=== PATIENT | female | born 1945 | race Caucasian/White ===

== ENCOUNTER → 2017-09-20 | Outpatient (CLI) | payer MEDICARE ==
--- NOTE | 2017-09-23 10:38 | MM ---
Reason for exam: screening (asymptomatic). Last mammogram was performed 1 year ago. History: Patient is postmenopausal and is nulliparous. Taking estrogen for 21 years beginning at age 48. Physical Findings: A clinical breast exam by your physician is recommended on an annual basis and results should be correlated with mammographic findings. MG 3D Screening Mammo W/Cad Bilateral CC and MLO view(s) were taken. Prior study comparison: September 18, 2016, bilateral MG 3d diag mammo w/cad LU[facility]O. September 09, 2015, right breast MG 3d work up w/cad RT. The breast tissue is extremely dense which could obscure a lesion on mammography. Stable benign calcifications in the right breast. No significant changes when compared with prior studies. ASSESSMENT: Benign, BI-RAD 2 RECOMMENDATION: Routine screening mammogram of both breasts in 1 year.
== END | disposition home or self-care (01) ==
LOC: RADMAMWWP 08:29
PROVIDERS: ATTEND Family Medicine
DX: Z12.31 Encounter for screening mammogram for malignant neoplasm of breast (principal)
CPT/HCPCS: 77063; G0202

== ENCOUNTER → 2017-10-02 | Outpatient (CLI) | payer MEDICARE ==
--- NOTE | 2017-10-02 08:21 | BD ---
EXAMINATION TYPE: MG DEXA axial skeleton. DATE OF EXAM: 10/02/2017 COMPARISON: Prior DEXA bone scan report January 18, 2003 CLINICAL HISTORY: Postmenopausal female Height: 5 FT 5 IN Weight: 139 FRAX RISK QUESTIONS: Alcohol (3 or more units per day): NO Family History (Parent hip fracture): NO Glucocorticoids (More than 3mos): NO (Ex: prednisone, prednisolone, methylprednisolone, dexamethasone, and hydrocortisone). History of Fracture in Adulthood: NO Secondary Osteoporosis: 1. Type 1 Diabetes: NO 2. Hyperthyroidism: NO 3. Menopause before 45: NO 4. Malnutrition: NO 5. Chronic liver disease: NO Rheumatoid Arthritis: NO Current Tobacco Use: NO RISK FACTORS HISTORY OF: Surgery to Spine/Hip(right/left)/Wrist (right/left): [facility] HIP REPLACEMENT When: LT DONE DONE 18 YEARS AGO RT ONE DONE 15 YEARS AGO Family History of Osteoporosis: NO Active: YES Postmenopausal woman: TOTAL HYST AGE 48 Take estrogen and/or progesterone medications: How long: TOOK HRT FOR 20 YEARS FOLLOWING HYST, NO LONGER TAKES MEDICATIONS: Thyroid Medications: YES Which medication: LEVOTHYROXINE How Lon- 3O YEARS Additional Medications: BLOOD PRESSURE MEDS, THYROID MEDS, CHOLESTEROL MEDS, BLADDER MEDS, Additional History: EXAM MEASUREMENTS: Bone mineral densitometry was performed using the [employer] System. Bone mineral density as measured about the Lumbar spine is: ----- L1-L4(G/cm2): 1.034 T Score Values are as follows: ----- L2: -2.5 ----- L3: -0.3 ----- L4: -0.2 ----- L1-L4: -1.2 Bone mineral density has: INCREASED 0.4 % since study of: 2002 IMPRESSION: Osteopenia (T Score between -2.5 and -1 as noted by T score values in the upper lumbar spine at 2 con secutive levels. There is slightly increased risk of fracture and the patient may be considered for t reatment. Re-Screen 2-5 years. NOTE: T-SCORE=SD OF THE YOUNG ADULT MEAN.
== END | disposition home or self-care (01) ==
LOC: RADBDWWP 07:53
PROVIDERS: ATTEND Family Medicine
DX: M85.88 Other specified disorders of bone density and structure, other site (principal); Z78.0 Asymptomatic menopausal state
CPT/HCPCS: 77080

== ENCOUNTER → 2018-12-31 | Outpatient (CLI) | payer MEDICARE ==
--- NOTE | 2019-01-01 11:13 | MM ---
Reason for exam: screening (asymptomatic). Last mammogram was performed 1 year and 3 months ago. History: Patient is postmenopausal and is nulliparous. Taking estrogen for 21 years beginning at age 48. Physical Findings: A clinical breast exam by your physician is recommended on an annual basis and results should be correlated with mammographic findings. MG 3D Screening Mammo W/Cad Bilateral CC and MLO view(s) were taken. Prior study comparison: September 20, 2017, bilateral MG 3d screening mammo w/cad. September 18, 2016, bilateral MG 3d diag mammo w/cad [facility]. The breast tissue is heterogeneously dense. This may lower the sensitivity of mammography. No significant changes when compared with prior studies. ASSESSMENT: Benign, BI-RAD 2 RECOMMENDATION: Routine screening mammogram of both breasts in 1 year.
== END | disposition home or self-care (01) ==
LOC: RADMAMWWP 13:21
PROVIDERS: ATTEND Family Medicine
DX: Z12.31 Encounter for screening mammogram for malignant neoplasm of breast (principal)
CPT/HCPCS: 77063; 77067

== ENCOUNTER → 2019-03-02 | Outpatient (CLI) | payer MEDICARE ==
--- NOTE | 2019-03-02 11:56 | XR ---
EXAMINATION TYPE: XR chest 2V DATE OF EXAM: 03/02/2019 COMPARISON: 09/18/2011 TECHNIQUE: PA and lateral views submitted. HISTORY: Chest pain FINDINGS: The lungs are clear and there is no pneumothorax, pleural or pleural effusion. Atherosclerotic browning ge aorta. Biapical pleural thickening. No overt failure. Subsegmental changes at the left lung base. IMPRESSION: 1. Left basilar subsegmental atelectasis or early infiltrate correlate clinically.
== END | disposition home or self-care (01) ==
LOC: RADXRMAIN 10:30
PROVIDERS: ATTEND Family Medicine
DX: R07.9 Chest pain, unspecified (principal)
CPT/HCPCS: 71046

== ENCOUNTER → 2021-02-15 | Outpatient (CLI) | payer MEDICARE ==
--- NOTE | 2021-02-15 12:44 | BD ---
EXAMINATION TYPE: Axial Bone Density DATE OF EXAM: 02/15/2021 COMPARISON: NONE CLINICAL HISTORY: Height: 64 Weight: 114.6 FRAX RISK QUESTIONS: Alcohol (3 or more units per day): no Family History (Parent hip fracture): no Glucocorticoids (More than 3mos): no (Ex: prednisone, prednisolone, methylprednisolone, dexamethasone, and hydrocortisone). History of Fracture in Adulthood: no Secondary Osteoporosis: 1. Type 1 Diabetes: no 2. Hyperthyroidism: no 3. Menopause before 45: no 4. Malnutrition: no 5. Chronic liver disease: no Rheumatoid Arthritis: no Current Tobacco Use: no RISK FACTORS HISTORY OF: Surgery to Spine/Hip(right/left)/Wrist (right/left): BILATERAL HIPS REPLACEMENTS When: over 20 years ago Family History of Osteoporosis: no Active: yes Diet low in dairy products/other sources of calcium: yes Postmenopausal woman: age 48 MEDICATIONS: cholesterol meds, blood pressure meds, bladder meds Thyroid Medications: levothyroxine How Lon years Additional History: EXAM MEASUREMENTS: Bone mineral densitometry was performed using the [employer] System. Bone mineral density as measured about the Lumbar spine is: ----- L1-L4(G/cm2): 0.945 T Score Values are as follows: ----- L2: -2.9 ----- L3: -1.3 ----- L4: -0.8 ----- L1-L4: -2.0 Bone mineral density has: decreased -8.0 % since study of: 10.02.2017 Bone mineral density about the L Wrist (g/cm2): 0.543 T Score values are as follows: -----Dist. R+U: -2.2 -----Prox. R+U: -2.0 -----Radius total: -2.1 Bone mineral density : baseline IMPRESSION: Osteopenia (T Score between -2.5 and -1). There is slightly increased risk of fracture and the patient may be considered for treatment. Re-Screen 2-5 years. NOTE: T-SCORE=SD OF THE YOUNG ADULT MEAN.
--- NOTE | 2021-02-16 10:54 | MM ---
Reason for exam: screening (asymptomatic). Last mammogram was performed 2 years and 1 month ago. History: Patient is postmenopausal and is nulliparous. Taking estrogen for 21 years beginning at age 48. Physical Findings: A clinical breast exam by your physician is recommended on an annual basis and results should be correlated with mammographic findings. MG 3D Screening Mammo W/Cad Bilateral CC and MLO view(s) were taken. Prior study comparison: December 31, 2018, bilateral MG 3d screening mammo w/cad. September 20, 2017, bilateral MG 3d screening mammo w/cad. The breast tissue is extremely dense which could obscure a lesion on mammography. There are benign appearing round calcifications in the right breast. There is no discrete abnormality. Fatty tissue masses redemonstrated. ASSESSMENT: Benign, BI-RAD 2 RECOMMENDATION: Routine screening mammogram of both breasts in 1 year.
== END | disposition home or self-care (01) ==
LOC: RADMAMWWP 09:25
PROVIDERS: ATTEND Family Medicine
DX: Z12.31 Encounter for screening mammogram for malignant neoplasm of breast (principal); M85.80 Other specified disorders of bone density and structure, unspecified site
CPT/HCPCS: 77063; 77067; 77080

== ENCOUNTER → 2021-03-30 | Outpatient (CLI) | payer MEDICARE ==
--- NOTE | 2021-04-01 15:00 | ECHOF ---
Referral Reason:R01.1 cardiac murmur MEASUREMENTS -------- HEIGHT: 162.6 cm WEIGHT: 52.2 kg BP: 140/65 IVSd: 0.8 cm (0.6 - 1.1) LVIDd: 4.1 cm (3.9 - 5.3) LVPWd: 0.7 cm (0.6 - 1.1) EDV(Teich): 76 ml IVSs: 1.6 cm LVIDs: 2.3 cm LVPWs: 1.2 cm %IVS Thck: 93 % ESV(Teich): 17 ml EF(Teich): 77 % %FS: 46 % SV(Teich): 59 ml LVOT Diam: 2.1 cm LA Diam: 3.2 cm (2.7 - 3.8) RVIDd: 3.1 cm (< 3.3) LALs A4C: 4.2 cm LAAs A4C: 13.4 cm LAESV A-L A4C: 36 ml LAESV MOD A4C: 32 ml LALs A2C: 5.1 cm LAAs A2C: 15.9 cm LAESV A-L A2C: 42 ml LAESV MOD A2C: 39 ml LAESV(A-L): 43 ml LAESV Index (A-L): 27.78 ml/m Ao Diam: 2.8 cm (2.0 - 3.7) AV Cusp: 1.6 cm (1.5 - 2.6) EPSS: 0.2 cm MV E Nakul: 0.74 m/s MV DecT: 217 ms MV Dec Mcdonald: 3.4 m/s MV A Nakul: 0.87 m/s MV E/A Ratio: 0.85 MV PHT: 63 ms LVOT Vmax: 1.26 m/s LVOT maxP.40 mmHg AV Vmax: 2.14 m/s AV maxP.26 mmHg RAJI Vmax, Pt: 2.0 cm AV Vmax: 2.17 m/s AV Vmean: 1.47 m/s AV maxP.85 mmHg AV meanP.58 mmHg AV Env.Ti: 328 ms AV VTI: 48.0 cm RAJI Vmax, Pt: 2.0 cm TR Vmax: 2.53 m/s TR maxP.62 mmHg RAP: 5.00 mmHg RVSP: 30.62 mmHg MV EF SLOPE: 47.94 mm/s (70 - 150) MV EXCURSION: 12.69 mm (> 18.000) FINDINGS -------- Sinus rhythm. This was a technically good study. The left ventricular size is normal. Left ventricular wall thickness is normal. Overall left vent ricular systolic function is normal with, an EF between 60 - 65 %. The right ventricle is normal in size. Normal LA size by volume 22+/-6 ml/m2. The right atrium is normal in size. Interatrial and interventricular septum intact. There is mild aortic valve sclerosis. Trace to mild aortic regurgitation. There is mild aortic st enosis present. Peak/mean gradient across the Aortic Valve is 18.85mmHg / 9.58mmHg. The mitral valve leaflets are mildly thickened. Mild mitral annular calcification present. Mild m itral regurgitation is present. Mild tricuspid regurgitation present. Right ventricular systolic pressure is normal at < 35 mmHg. Trace/mild (physiologic) pulmonic regurgitation. The aortic root size is normal. Normal inferior vena cava with normal inspiratory collapse consistent with estimated right atrial pre ssure of 5 mmHg. There is no pericardial effusion. CONCLUSIONS -------- 1. The left ventricular size is normal. 2. Left ventricular wall thickness is normal. 3. Overall left ventricular systolic function is normal with, an EF between 60 - 65 %. 4. There is mild aortic valve sclerosis. 5. Trace to mild aortic regurgitation. 6. There is mild aortic stenosis present. 7. Peak/mean gradient across the Aortic Valve is 18.85mmHg / 9.58mmHg. 8. The mitral valve leaflets are mildly thickened. 9. Mild mitral annular calcification present. 10. Mild mitral regurgitation is present. 11. Mild tricuspid regurgitation present. 12. Trace/mild (physiologic) pulmonic regurgitation. 13. There is no pericardial effusion. SHEEP BONER: Melinda Guerrero RDCS
== END | disposition home or self-care (01) ==
LOC: RADECHMAIN 13:40
PROVIDERS: ATTEND Family Medicine
DX: I08.8 Other rheumatic multiple valve diseases (principal)
CPT/HCPCS: 93306

== ENCOUNTER → 2023-06-28 | Outpatient (CLI) | payer MEDICARE ==
--- NOTE | 2023-06-28 21:46 | BD ---
EXAMINATION TYPE: Axial Bone Density DATE OF EXAM: 06/28/2023 CLINICAL HISTORY: 77 years old Female. ICD-10 CODE: M85.9 DISORDER OF BONE DENSITY AND Height: 63" Weight: 126.1lbs FRAX RISK QUESTIONS: Alcohol (3 or more units per day): No Family History (Parent hip fracture): No Glucocorticoids (More than 3mos): No (Ex: prednisone, prednisolone, methylprednisolone, dexamethasone, and hydrocortisone). History of Fracture in Adulthood: No Secondary Osteoporosis: 1. Type 1 Diabetes: No 2. Hyperthyroidism: No 3. Menopause before 45: No 4. Malnutrition: No 5. Chronic liver disease: No Rheumatoid Arthritis: No Current Tobacco Use: No RISK FACTORS HISTORY OF: Hip Fracture (Right/Left): No Spine Fracture: No History of Wrist Fracture: No Surgery to Spine/Hip(right/left)/Wrist (right/left): Yes, bilateral hip replacements over 20 years ag o Family History of Osteoporosis: No Active: Yes Diet low in dairy products/other sources of calcium: No Postmenopausal woman: Yes Lost more than 2 inches in height since high school: No Frequent falls: No Poor Health: No Hyperparathyroidism: No Adrenal Insufficiency: No MEDICATIONS: Prednisone or other steroids: No Thyroid Medications: Yes Which medication: Levothyroxine How Long: Many years Osteoporosis Medications: No Additional Medications: blood pressure meds, cholesterol meds, levothyroxine, occasional reflux meds Additional History: None EXAM MEASUREMENTS: Bone mineral densitometry was performed using the [employer] System. Bone mineral density as measured about the Lumbar spine is: ----- L1-L4(G/cm2): 0.956 T Score Values are as follows: ----- L1: -2.7 ----- L2: -2.9 ----- L3: -1.2 ----- L4: -1.3 ----- L1-L4: -1.9 Z Score Values are as follows: ----- L1: -0.6 ----- L2: -0.8 ----- L3: 0.9 ----- L4: 0.8 ----- L1-L4: 0.2 Bone mineral density has: increased 1.2% since study of: 02/15/2021 Bone mineral density about the L Wrist (g/cm2): 0.543 T Score values are as follows: -----Dist. R+U: -1.9 -----Prox. R+U: -2.1 -----Radius total: -2.2 Z Score values are as follows: -----Dist. R+U: 0.9 -----Prox. R+U: 0.6 -----Radius total: 0.5 Bone mineral density has: decreased -1.7% since study of: 02/15/2021 FRAX%s: Not Applicable IMPRESSION: Osteoporosis (T Score less than -2.5). There is increased fracture risk and therapy is usually indicated based on age. Re-Screen 1-2 years. NOTE: T-SCORE=SD OF THE YOUNG ADULT MEAN.
--- NOTE | 2023-07-01 11:39 | MM ---
Reason for Exam: Screening (asymptomatic). Last mammogram was performed 2 year(s) and 4 month(s) ago. Patient History: Menarche at age 11. Patient has no children. Left ovary removed at age 48. Right ovary removed at age 48. Hysterectomy at age 48. Postmenopausal. Estrogen, starting at age 48 for 21 years. Risk Values: Lise 5 year model risk: 1.9%. NCI Lifetime model risk: 3.1%. Prior Study Comparison: 09/20/2017 Bilateral Screening Mammogram, [facility]. 12/31/2018 Bilateral Screening Mammogram, [facility]. 02/15/2021 Bilateral Screening Mammogram, [facility]. Tissue Density: The breast tissue is extremely dense which could obscure a lesion on mammography. Findings: Analyzed By CAD. There is no suspicious group of microcalcifications or new suspicious mass in either breast. Overall Assessment: Negative, BI-RAD 1 Management: Screening Mammogram of both breasts in 1 year. . Patient should continue monthly self-breast exams. A clinical breast exam by your physician is recommended on an annual basis. This exam should not preclude additional follow-up of suspicious palpable abnormalities. Note on Lise scores and lifetime risk: 1. A Lise score greater than 3% is considered moderate risk. If this is the case, consider specialist referral to assess eligibility for a risk reducing agent. 2. If overall lifetime risk for the development of breast cancer is 20% or higher, the patient may qualify for future screening with alternating mammogram and breast MRI. Electronically signed and approved by: Jose Cr M.D. Radiologis
== END | disposition home or self-care (01) ==
LOC: RADMAMWWP 15:22
PROVIDERS: ATTEND Family Medicine
DX: Z12.31 Encounter for screening mammogram for malignant neoplasm of breast (principal); M81.0 Age-related osteoporosis without current pathological fracture; M85.89 Other specified disorders of bone density and structure, multiple sites; Z78.0 Asymptomatic menopausal state; Z96.643 Presence of artificial hip joint, bilateral
CPT/HCPCS: 77063; 77067; 77080

== ENCOUNTER 2024-09-10 18:13 | Inpatient (IN) | payer MEDICARE ==
--- NOTE | 2024-09-10 18:27 | ED ---
General Adult HPI - General Chief complaint: Fall Stated complaint: Fall Time Seen by Provider: 09/10/24 18:15 Source: patient, EMS, RN notes reviewed, old records reviewed Mode of arrival: EMS Limitations: no limitations, physical limitation - History of Present Illness Initial comments: This is a 79-year-old female who presents to the emergency department stating that she was at the [facility] [address] she turned around and felt a snap in her right femur and now she complains of mid femur pain. Patient denies any hip pain patient denies any knee ankle or foot pain patient denies any other injury at this time. - Related Data Allergies Allergy/AdvReac Type Severity Reaction Status Date / Time narcotics AdvReac Nausea & Uncoded 09/10/24 18:38 Vomiting & Diarrhea Review of Systems ROS Statement: Those systems with pertinent positive or pertinent negative responses have been documented in the HPI. ROS Other: All systems not noted in ROS Statement are negative. Past Medical History Past Medical History: Hyperlipidemia, Hypertension, Thyroid Disorder Additional Past Medical History / Comment(s): hypothyroid, History of Any Multi-Drug Resistant Organisms: None Reported Past Surgical History: Adenoidectomy, Appendectomy, Hysterectomy, Joint Replacement, Tonsillectomy Additional Past Surgical History / Comment(s): bilateral knees, bilateral hips, Past Psychological History: No Psychological Hx Reported Smoking Status: Former smoker Past Alcohol Use History: Rare Past Drug Use History: None Reported General Exam - General Exam Comments Initial Comments: GENERAL Patient is well-developed and well-nourished. Patient is in mild distress. EYES Patient's pupils are equal and round. Extraocular motion is intact SKIN Unremarkable NEURO The patient is alert and oriented A&Ox3 PYSCH Patient has normal interpersonal interactions. MUSCULOSKELETAL Patient has a gross deformity of the mid femur and very tender and swollen in the mid femur region on the right Limitations: no limitations, physical limitation Course Vital Signs 09/10/24 09/10/24 09/10/24 18:14 18:48 19:10 Temperature 97.6 F Pulse Rate 67 75 71 Respiratory 18 18 18 Rate Blood Pressure 179/91 179/82 185/88 O2 Sat by Pulse 99 97 96 Oximetry Procedures - Orthopedic Fracture Reduction Fracture #1 Consent Obtained: written consent Side: right Fracture Reduction Location: femur Analgesia: procedural sedation Technique: traction/counter-traction Post Reduction X-rays Demonstrate: acceptable reduction Post-Reduction Neuro Exam: intact Post-Reduction Vascular Exam: intact Splint Applied: Yes Patient Tolerated Procedure: well - Procedural Sedation *Procedural Sedation Start Time: 19:13 *Procedural Sedation Stop Time: 19:40 *Risks,benefits, and alternative therapies discussed?: Yes *Patient indicates understanding of risk/benefit discussion?: Yes *Indications: fracture/dislocation reduction *Previous Adverse Reaction to Anesthesia/Sedation?: No Reason Test Not Complete:: Emergent Situation *ASA Class: II *Mallampati Airway Score: 2 Preparation: senior water resources engineer applied, pulse oximeter, capnometry used IV Propofol Dose (mgs): 75 Complications: none Interventions: oxygen applied Patient Tolerated Procedure: well Medical Decision Making - Medical Decision Making EKG is interpreted by myself. EKG shows sinus rhythm at 76 bpm NC 195 QRS is 135 QT interval 427 QTc is 457. Patient EKG shows no ST segment ovation or depression. Was pt. sent in by a medical professional or institution (, [facility], PHYSICS DEPARTMENT CHAIR, urgent care, hospital, or skilled nursing...) When possible be specific @ -No Did you speak to anyone other than the patient for history (EMS, parent, family, police, friend...)? What history was obtained from this source @ -No Did you review nursing and triage notes (agree or disagree)? Why? @ -I reviewed and agree with nursing and triage notes Were old charts reviewed (outside hosp., previous admission, EMS record, old EKG, old radiological studies, urgent care reports/EKG's, skilled nursing records)? Report findings @ -No old charts were reviewed Differential Diagnosis? @ -Hip dislocation, hip fracture, femur fracture, ligamentous damage of the knee this is not all-inclusive list EKG interpreted by me (3pts min.). @ -As above X-rays interpreted by me (1pt min.). @ -X-ray shows a distal spiral shaft fracture of the right femur. Postreduction showed reasonable alignment of the femur CT interpreted by me (1pt min.). @ -None done U/S interpreted by me (1pt. min.). @ -None done What testing was considered but not performed or refused? (CT, X-rays, U/S, labs)? Why? @ -None What meds were considered but not given or refused? Why? @ -None Did you discuss the management of the patient with other professionals (professionals i.e. , PA, PHYSICS DEPARTMENT CHAIR, lab, RT, psych nurse, social service agency director, e business consultant, teacher, sustainability officer, case filler)? Give summary @ -I spoke with and he spoke with Dr. perez and the patient will be admitted to Dr. perez consults [facility]. I spoke with [facility] hospitalist they agreed that they would be able to see the patient early in the morning and clear medically Was smoking cessation discussed for >3mins.? @ -No Was critical care preformed (if so, how long)? @ -No Were there social determinants of health that impacted care today? How? (Homelessness, low income, unemployed, alcoholism, drug addiction, transportation, low edu. Level, literacy, decrease access to med. care, care home, rehab)? @ -No Was there de-escalation of care discussed even if they declined (Discuss DNR or withdrawal of care, Hospice)? DNR status @ -No What co-morbidities impacted this encounter? (DM, HTN, Smoking, COPD, CAD, Cancer, CVA, ARF, Chemo, Hep., AIDS, mental health diagnosis, sleep apnea, morbid obesity)? @ -None Was patient admitted / discharged? Hospital course, mention meds given and route, prescriptions, significant lab abnormalities, going to OR and other pertinent info. @ -Patient had a femur fracture and I reduced under conscious sedation using propofol. Alignment was satisfactory. I will be admitting to Dr. Hernandez with a medicine consult Undiagnosed new problem with uncertain prognosis? @ -No Drug Therapy requiring intensive monitoring for toxicity (Heparin, Nitro, Insulin, Cardizem)? @ -No Were any procedures done? @ -No Diagnosis/symptom? @ -Femur fracture Acute, or Chronic, or Acute on Chronic? @ -Acute Uncomplicated (without systemic symptoms) or Complicated (systemic symptoms)? @ -Complicated Side effects of treatment? @ -No Exacerbation, Progression, or Severe Exacerbation? @ -No Poses a threat to life or bodily function? How? (Chest pain, [place], [place], pneumonia, PE, COPD, DKA, ARF, appy, cholecystitis, CVA, Diverticulitis, Homicidal, Suicidal, threat to staff... and all critical care pts) @ -No - Lab Data Result diagrams: 09/10/24 18:49 09/10/24 18:49 Lab Results 09/10/24 09/10/24 Range/Units 18:49 18:49 WBC 7.3 (3.8-10.6) k/uL RBC 4.13 (3.80-5.40) m/uL Hgb 12.4 (11.4-16.0) gm/dL Hct 37.1 (34.0-46.0) % MCV 89.9 (80.0-100.0) fL MCH 30.0 (25.0-35.0) pg MCHC 33.4 (31.0-37.0) g/dL RDW 14.6 (11.5-15.5) % Plt Count 336 (150-450) k/uL MPV 7.2 Neutrophils % 62 % Lymphocytes % 26 % Monocytes % 7 % Eosinophils % 1 % Basophils % 1 % Neutrophils # 4.6 (1.3-7.7) k/uL Lymphocytes # 1.9 (1.0-4.8) k/uL Monocytes # 0.5 (0-1.0) k/uL Eosinophils # 0.1 (0-0.7) k/uL Basophils # 0.0 (0-0.2) k/uL Sodium 135 L (137-145) mmol/L Potassium 4.0 (3.5-5.1) mmol/L Chloride 103 (98-107) mmol/L Carbon Dioxide 22 (22-30) mmol/L Anion Gap 10 mmol/L BUN 34 H (7-17) mg/dL Creatinine 1.02 (0.52-1.04) mg/dL Est GFR (CKD-EPI)AfAm 60 (>60 ml/min/1.73 sqM) Est GFR (CKD-EPI)NonAf 52 (>60 ml/min/1.73 sqM) Glucose 113 H (74-99) mg/dL Calcium 9.5 (8.4-10.2) mg/dL Total Bilirubin 0.4 (0.2-1.3) mg/dL AST 28 (14-36) U/L ALT 13 (4-34) U/L Alkaline Phosphatase 65 (38-126) U/L Total Protein 7.1 (6.3-8.2) g/dL Albumin 4.4 (3.5-5.0) g/dL Disposition Clinical Impression: Fracture, femur, distal Disposition: ADMITTED IP TO THIS HOSP Referrals: Renetta Torres MD [Primary Care Provider] - 1-2 days Time of Disposition: 19:41
[2024-09-10] MEDS: ONDANSETRON 4 MG/2 ML VIAL IVP STA (18:40)
[2024-09-10] MEDS: HYDROmorphone 0.5 MG/0.5 ML SYRINGE IVP STA (18:41)
--- NOTE | 2024-09-10 18:46 | XR ---
EXAMINATION TYPE: XR Femur RT 1 View DATE OF EXAM: 09/10/2024 6:35 PM COMPARISON: None CLINICAL INDICATION: Female, 79 years old with history of Fall, leg pain; [facility] TECHNIQUE: XR Femur RT 1 View examined in Frontal and lateral projections. FINDINGS/IMPRESSION: 1. Acute distal femur diaphysis fracture which demonstrates fragments closely approximating total kn ee arthroplasty hardware in the femur suggestive periprosthetic fracture. Anterior angulation with sh ortening is also present. 2. Right hip arthroplasty appears intact. No evidence for acute process. 3. Severe atherosclerosis of the arterial vasculature. [facility], , 09/10/2024 6:44 PM
[2024-09-10 18:55] LABS: Basophils % (A) 1 %; Eosinophils # (A) 0.1 k/uL (0-0.7); Eosinophils % (A) 1 %; HCT 37.1 % (34.0-46.0); HGB 12.4 gm/dL (11.4-16.0); Lymphocytes # (A) 1.9 k/uL (1.0-4.8); Lymphocytes % (A) 26 %; MCHC 33.4 g/dL (31.0-37.0); MCV 89.9 fL (80.0-100.0); Mean Platelet Volume 7.2; Monocytes # (A) 0.5 k/uL (0-1.0); Monocytes % (A) 7 %; Neutrophils # (A) 4.6 k/uL (1.3-7.7); Neutrophils % (A) 62 %; Platelet Count 336 k/uL (150-450); RBC 4.13 m/uL (3.80-5.40); RDW 14.6 % (11.5-15.5); WBC 7.3 k/uL (3.8-10.6)
[2024-09-10 19:10] LABS: ALT 13 U/L (4-34); AST 28 U/L (14-36); African American GFR (CKD) 60 (>60 ml/min/1.73 sqM); Albumin 4.4 g/dL (3.5-5.0); Alkaline Phosphatase 65 U/L (38-126); Anion Gap 10 mmol/L; Blood Urea Nitrogen 34 mg/dL (7-17); Calcium 9.5 mg/dL (8.4-10.2); Carbon Dioxide 22 mmol/L (22-30); Chloride 103 mmol/L (98-107); Glucose 113 mg/dL (74-99); Non-African American GFR(CKD) 52 (>60 ml/min/1.73 sqM); Sodium 135 mmol/L (137-145); Total Bilirubin 0.4 mg/dL (0.2-1.3); Total Protein 7.1 g/dL (6.3-8.2)
[2024-09-10] MEDS: PROPOFOL 10 MG/ML 20 ML VIAL IV ONE (19:27)
--- NOTE | 2024-09-10 19:42 | XR ---
EXAMINATION TYPE: XR femur RT DATE OF EXAM: 09/10/2024 7:36 PM COMPARISON: Same day CLINICAL INDICATION: Female, 79 years old with history of Post reduction femur fracture. TECHNIQUE: XR femur RT examined in Frontal and lateral projections. FINDINGS/IMPRESSION: Acute fracture of the distal femur diaphysis remains. External brace in place. There remains 19 mm di splacement with shortening. [facility], , 09/10/2024 7:40 PM
[2024-09-10 19:59] LABS: Partial Thromboplastin Time 20.2 sec (22.0-30.0)
[2024-09-10] MEDS: SODIUM CHLORIDE 0.9% 1,000 ML IV ONE (21:12)
[2024-09-10] MEDS ORDERED: HYDROcodone/APAP 5-325MG 1 EACH TAB PO PRN (21:34)
[2024-09-10] MEDS ORDERED: HYDROmorphone 0.5 MG/0.5 ML SYRINGE IVP PRN (21:35)
[2024-09-10] MEDS: ONDANSETRON 4 MG/2 ML VIAL IVP PRN (21:46)
[2024-09-10] MEDS: ACETAMINOPHEN TAB 325 MG TAB PO PRN (22:28)
[2024-09-10] MEDS: MELATONIN 3 MG TABLET PO PRN (22:28)
--- NOTE | 2024-09-11 10:21 | XR ---
EXAMINATION TYPE: XR chest 1V portable DATE OF EXAM: 09/11/2024 COMPARISON: NONE CLINICAL INDICATION: Female, 79 years old with history of shortness of breath; , TECHNIQUE: XR chest 1V portable views of the chest. FINDINGS: Left lower lobe infiltrate tiny effusion. No overt failure. Heart size normal. Atherosclerotic change aorta. Osseous structures intact. IMPRESSION: 1. Left lower lobe infiltrate and small pleural effusion. [facility], , 09/11/2024 10:19 AM
[2024-09-11] MEDS: IV FLUID CONTINUATION 1,000 ML IV ONE ×2 (12:08→17:32)
[2024-09-11] MEDS: ONDANSETRON 4 MG/2 ML VIAL IVP ONE ×2 (12:13→17:30)
[2024-09-11] MEDS: DEXAMETHASONE SOD PHOSPHATE 4 MG/ML 1 ML VIAL IV ONE (12:13)
[2024-09-11] MEDS ORDERED: TRANEXAMIC 1,000 MG/100ML-NACL 1,000 MG in SALINE 1 100ML.BAG IVPB PRN (13:08)
--- NOTE | 2024-09-11 13:37 | P.HPOR ---
History of Present Illness H&P Date: 09/11/24 Chief Complaint: right thigh pain status post fall Patient is a pleasant 79-year-old female who presented to the emergency department for right thigh pain status post ground level fall on 09/10/2024. Patient [place] and as she turned around she felt a snap in her right femur and fell to the ground. She immediately had pain. She was not able to ambulate afterward. She was brought to the emergency department where x-rays were taken. X-rays of the right femur dated 09/10/2024 images were reviewed and show an acute distal femur diaphysis fracture which demonstrates fragments closely approximating total knee arthroplasty hardware in the femur. Anterior angulation with shortening, and approximately 19 mm of displacement. Right total hip arthroplasty appears intact. Severe atherosclerosis of the arterial vasculature. Previously the patient was able to ambulate on her own without a cane or walker. Patient states that she currently lives alone in her home. Patient states she had bilateral total knee replacements done by Dr. Riley approximately 4 years ago, and has complained of bilateral weakness in the knees since. Past Medical History Past Medical History: Hyperlipidemia, Hypertension, Thyroid Disorder Additional Past Medical History / Comment(s): hypothyroid, History of Any Multi-Drug Resistant Organisms: None Reported Past Surgical History: Adenoidectomy, Appendectomy, Hysterectomy, Joint Replacement, Tonsillectomy Additional Past Surgical History / Comment(s): bilateral knees, bilateral hips, Past Psychological History: No Psychological Hx Reported Smoking Status: Former smoker Past Alcohol Use History: Rare Past Drug Use History: None Reported Medications and Allergies Home Medications Medication Instructions Recorded Confirmed Type Atorvastatin [Lipitor] 10 mg PO DAILY 09/10/24 09/10/24 History Levothyroxine Sodium [Synthroid] 75 mcg PO DAILY 09/10/24 09/10/24 History Losartan Potassium [Cozaar] 100 mg PO DAILY 09/10/24 09/10/24 History hydroCHLOROthiazide [Hydrodiuril] 25 mg PO DAILY 09/10/24 09/10/24 History Allergies Allergy/AdvReac Type Severity Reaction Status Date / Time narcotics AdvReac Nausea & Uncoded 09/11/24 11:49 Vomiting & Diarrhea Physical Examination Patient was evaluated at bedside. Patient was sitting up in bed in no acute distress. Patient was awake, alert and able to answer questions. A focused exam of the right lower extremity was conducted. Upon inspection there is a obvious deformity to the mid right thigh. There is generalized swelling. The skin appears intact. Patient's femoral nerve function is grossly intact. The patient is able to plantarflex and dorsiflex the right ankles and toes. Patient's foot appears well-perfused with capillary refill under 2 seconds. Range of motion of the hip and knee were not tested due to the acute femur fracture. Patient denies pain in her right ankle or foot at time of exam today. Results - Labs Labs: Abnormal Lab Results - Last 24 Hours (Table) 09/10/24 09/10/24 Range/Units 18:49 18:49 APTT 20.2 L (22.0-30.0) sec Sodium 135 L (137-145) mmol/L BUN 34 H (7-17) mg/dL Glucose 113 H (74-99) mg/dL H & H 09/10/24 Range/Units 18:49 Hgb 12.4 (11.4-16.0) gm/dL Hct 37.1 (34.0-46.0) % Coagulation 09/10/24 Range/Units 18:49 INR 1.0 (<1.2) Result Diagrams: 09/10/24 18:49 09/10/24 18:49 - Diagnostic results Knee x-ray: report reviewed, image reviewed Assessment and Plan Assessment: Acute right inter prosthetic femur fracture Right thigh pain. Status post ground-level fall. Prior right total hip arthroplasty Prior right total knee arthroplasty Plan: NPO. Nonweightbearing. X-ray results and clinical exam findings were discussed with the patient at length and all questions were answered. Plan: Open reduction internal fixation right inter prosthetic femur fracture this afternoon by Dr. Banda. Janet was used for this dictation, please excuse any spelling errors.
[2024-09-11] MEDS ORDERED: PROPOFOL 10 MG/ML 20 ML VIAL IV ONE (13:46)
[2024-09-11] MEDS ORDERED: fentaNYL (PF) 50 MCG/ML 2 ML AMP ONE (13:46)
[2024-09-11] MEDS ORDERED: diphenhydrAMINE 50 MG/ML 1 ML VIAL ONE (13:46)
[2024-09-11] MEDS ORDERED: SUCCINYLCHOLINE CHLORIDE 200 MG/10 ML VIAL IV ONE (13:46)
[2024-09-11] MEDS ORDERED: KETAMINE HCL IN 0.9 % NACL 50 MG/5 ML SYRINGE ONE (13:46)
[2024-09-11] MEDS ORDERED: LIDOCAINE 1% INJ 10MG/ML (20 ML MDV) ONE (13:46)
[2024-09-11] MEDS ORDERED: KETOROLAC 15 MG/ML 1 ML VIAL ONE (13:46)
[2024-09-11] MEDS ORDERED: ACETAMINOPHEN IV (For NPO) 1,000 MG/100 ML VIAL ONE (13:46)
[2024-09-11] MEDS ORDERED: TRANEXAMIC 1,000 MG/100ML-NACL PREMIX BAG ONE (13:46)
[2024-09-11] MEDS ORDERED: ROCURONIUM 10 MG/ML (5 ML VIAL) IV ONE (13:46)
[2024-09-11] MEDS ORDERED: MIDAZOLAM 2 MG/2 ML VIAL ONE (13:46)
[2024-09-11] MEDS: SODIUM CHLORIDE 0.9% 100 ML with ceFAZolin 2,000 MG IV ONE (13:50)
--- NOTE | 2024-09-11 14:43 | P.CONS ---
History of Present Illness - Reason for Consult Consult date: 09/11/24 Surgical clearance right femur fracture, postop management - History of Present Illness This is a pleasant 79-year-old female who presented to the emergency department via EMS with a fall although prior to the fall patient reports she took an awkward step and heard a crack of the left leg and then immediately fell with inability to stand up and experiencing immense pain. Patient was brought in for further evaluation and noted to have an acute distal femur diaphysis fracture which demonstrates fragments closely approximating the total knee arthroplasty hardware suggestive of a periprosthetic fracture with anterior angulation and shortening of the left lower extremity. Patient reports she follows with Dr. Torres in the outpatient setting with a past medical history of hyperlipidemia, hypertension, hypothyroid, previous bilateral knee replacements and bilateral hips. Patient lives alone and completely independent without a walker or cane prior to this event. Patient was admitted under orthopedics with medical on for surgical clearance. Given patient's age and comorbidities, patient considered low risk for surgical intervention. EKG was reviewed which shows sinus rhythm, chest x-ray negative for acute process and patient was also given a liter bolus in the ER. Recommend discontinuing fluids once patient is able to tolerate diet. Patient reports she has a significant history of intolerance to ane sthesia and pain medications with severe nausea. Will continue with Zofran and add Reglan as needed as well. Patient is currently n.p.o. and scheduled to undergo surgical intervention today. REVIEW OF SYSTEMS: CONSTITUTIONAL: No fever, no malaise, no fatigue. HEENT: No recent visual problems or hearing problems. Denied any sore throat. CARDIOVASCULAR: No chest pain, orthopnea, PND, no palpitations, no syncope. PULMONARY: No shortness of breath, no cough, no hemoptysis. GASTROINTESTINAL: No diarrhea, no nausea, no vomiting, no abdominal pain. NEUROLOGICAL: No headaches, no weakness, no numbness. HEMATOLOGICAL: Denies any bleeding or petechiae. GENITOURINARY: Denies any burning micturition, frequency, or urgency. MUSCULOSKELETAL/RHEUMATOLOGICAL: Reports of pain in the left lower extremity although okay with not moving ENDOCRINE: Denies any polyuria or polydipsia. The rest of the 14-point review of systems is negative. PHYSICAL EXAMINATION: GENERAL: The patient is alert and oriented x3, not in any acute distress. Well developed, elderly appearing HEENT: Pupils are round and equally reacting to light. EOMI. No scleral icterus. No conjunctival pallor. Normocephalic, atraumatic. No pharyngeal erythema. No thyromegaly. CARDIOVASCULAR: S1 and S2 present. No murmurs, rubs, or gallops. PULMONARY: Chest is clear to auscultation, no wheezing or crackles. ABDOMEN: Soft, nontender, nondistended, normoactive bowel sounds. No palpable organomegaly. MUSCULOSKELETAL: No joint swelling or deformity. EXTREMITIES: No cyanosis, clubbing, or pedal edema. Left lower extremity externally rotated and shortened NEUROLOGICAL: Gross neurological examination did not reveal any focal deficits. Diffusely weak SKIN: No rashes. Assessment: Left lower extremity pain secondary to periprosthetic fracture of the distal femur diaphysis closely approximating the previous left total knee arthroplasty Fall from ground-level secondary to above, patient reports she heard a crack and then fell and was unable to ambulate History of hyperlipidemia History of hypertension History of hypothyroidism History of previous bilateral knee replacements along with bilateral hips GI prophylaxis DVT prophylaxis Full code Plan: Patient was admitted under orthopedic services status post MIS plate stepping while at bowling and heard a crack and fell and was noted to have an acute distal femur diaphysis fracture with fragments noted closely approximating the total left knee arthroplasty from previous Patient is n.p.o. currently and scheduled to undergo surgical intervention later today with Dr. Banda Given patient's age and comorbidities patient is considered low risk for surgical intervention and was independent and steady gait with no assistive devices prior to this event. Risks versus benefits were explained and patient is medically stable and cleared for surgical intervention Medical on for management and will follow-up with postop management as well Encourage incentive spirometer use at least 10 times every hour while awake Home medications reviewed and resumed as appropriate Patient reports to having severe sensitivity to anesthesia along with narcotic medications with severe nausea and recommend continue with Zofran with each medication and will add as needed Reglan as well. We will continue to follow with orthopedics during hospitalization. PT/OT therapy evaluation postoperatively The impression and plan of care has been dictated by Roxana Russ, Nurse Practitioner as directed. Dr. Sonya MD I have performed a history and examination and MDM of this patient, discussed the same with the dictator, and agree with the dictator's assessment and plan as written ,documented as a scribe. Based on total visit time, I have performed more than 50% of the visit. Past Medical History Past Medical History: Hyperlipidemia, Hypertension, Thyroid Disorder Additional Past Medical History / Comment(s): hypothyroid, History of Any Multi-Drug Resistant Organisms: None Reported Past Surgical History: Adenoidectomy, Appendectomy, Hysterectomy, Joint Replacement, Tonsillectomy Additional Past Surgical History / Comment(s): bilateral knees, bilateral hips, Past Psychological History: No Psychological Hx Reported Smoking Status: Former smoker Past Alcohol Use History: Rare Past Drug Use History: None Reported Medications and Allergies Home Medications Medication Instructions Recorded Confirmed Type Atorvastatin [Lipitor] 10 mg PO DAILY 09/10/24 09/10/24 History Levothyroxine Sodium [Synthroid] 75 mcg PO DAILY 09/10/24 09/10/24 History Losartan Potassium [Cozaar] 100 mg PO DAILY 09/10/24 09/10/24 History hydroCHLOROthiazide [Hydrodiuril] 25 mg PO DAILY 09/10/24 09/10/24 History Allergies Allergy/AdvReac Type Severity Reaction Status Date / Time narcotics AdvReac Nausea & Uncoded 09/11/24 11:49 Vomiting & Diarrhea Physical Exam Vitals: Vital Signs Temp Pulse Pulse Resp BP BP Pulse Ox 09/11/24 06:48 98.6 F 71 18 118/71 09/11/24 00:54 97.1 F L 71 15 155/76 99 09/10/24 20:24 71 16 154/74 100 09/10/24 19:27 68 18 159/78 100 09/10/24 19:23 66 18 143/67 100 09/10/24 19:14 67 18 149/71 100 09/10/24 19:10 71 18 185/88 96 09/10/24 18:48 75 18 179/82 97 09/10/24 18:14 97.6 F 67 18 179/91 99 Intake and Output 09/10/24 09/11/24 09/11/24 22:59 06:59 14:59 Intake Total 540 Output Total 325 Balance 215 Intake: Oral 540 Output: Urine 325 Other: Voiding Method Indwelling Catheter Weight 52.617 kg Results CBC & Chem 7: 09/10/24 18:49 09/10/24 18:49 Labs: Abnormal Lab Results - Last 24 Hours (Table) 09/10/24 09/10/24 Range/Units 18:49 18:49 APTT 20.2 L (22.0-30.0) sec Sodium 135 L (137-145) mmol/L BUN 34 H (7-17) mg/dL Glucose 113 H (74-99) mg/dL
[2024-09-11] MEDS ORDERED: METOCLOPRAMIDE 5 MG/ML 2 ML VIAL IVP PRN (14:44)
[2024-09-11] MEDS: ROPIVACAINE 5 MG/ML 30 ML VIAL MISCELLANE ONE (16:16)
--- NOTE | 2024-09-11 16:31 | XR ---
EXAMINATION TYPE: XR femur RT, FL guidance operating room DATE OF EXAM: 09/11/2024 4:28 PM COMPARISON: Pre Operative Images if available both CT/MRI or plain film CLINICAL INDICATION: Female, 79 years old with history of ORIF Rt Femur; TECHNIQUE: XR femur RT, FL guidance operating room, multiple fluoroscopic images provided for procedu re. Total fluoroscopy time: 1 min 43.5 sec Total submitted images to PACS: 11 DAP: 1.4643 mGym2 Gycm2 uGym2 cGycm2 or equivalent. FINDINGS: Fluoroscopic images during internal fixation/arthroplasty demonstrate fixation hardware in appropriat e position. Hardware appears intact. No immediate complication identified. IMPRESSION: 1. No evidence for intraoperative complication. 2. Please see the operative/procedural note for further details. [facility], , 09/11/2024 4:29 PM
[2024-09-11] MEDS ORDERED: HYDROcodone/APAP 10-325MG 1 EACH TAB PO PRN (16:48)
[2024-09-11] MEDS ORDERED: NALOXONE 0.4 MG/ML 1 ML VIAL IV PRN (16:48)
[2024-09-11] MEDS ORDERED: MAGNESIUM HYDROXIDE 2,400 MG/30 ML CUP PO PRN (16:48)
[2024-09-11] MEDS ORDERED: HYDROmorphone 0.5 MG/0.5 ML SYRINGE IVP PRN ×3 (16:48)
--- NOTE | 2024-09-11 16:58 | P.OP ---
Date of Procedure: 09/11/24 Preoperative Diagnosis: Right inter-prosthetic femur fracture Postoperative Diagnosis: Same Procedure(s) Performed: ORIF Right interprosthetic femur fracture Anesthesia: KIMA Surgeon: Alek Banda House Wrecker #1: James Dewitt Estimated Blood Loss (ml): 200 IV fluids (ml): 800 Pathology: none sent Condition: stable Disposition: PACU Indications for Procedure: The patient is a very pleasant 79-year-old female who was admitted under my care after sustaining a fall while bowling resulting in a right femur fracture between a well fixed total knee and total hip replacement. The patient was met preoperatively. She had a right total knee replacement and right total hip replacement by Dr. Osvaldo Downing several years ago. She has been having problems with them. She says her leg feels unstable. Today she was bowling when she fell and injured her right leg. She was brought to the emergency department where x-rays showed a displaced inter prosthetic femur fracture. I met with the patient and discussed treatment options. I recommended open reduction and internal fixation to a direct lateral approach to the femur. We discussed potential risks and complications of surgery at length including but certainly not limited to risks from anesthesia, superficial or deep infection, delayed wound healing, damage to local blood vessels or nerves, fracture nonunion, fracture malunion, symptomatic hardware, hardware failure, loosening of the total hip and/or knee replacement, adequate complications including DVT, PE, acute coronary event, stroke, failure to thrive, and inability to regain preinjury level of function, and possibly loss of life or limb. The patient understands the severity and seriousness of her injury and the potential for poor outcome. She provided both her verbal and written consent to go forward with surgery. Description of Procedure: Patient was identified in preoperative holding and the correct right leg was marked with my initials. I reviewed the consent form with the patient and all of her questions were answered. The patient was then brought back to the operating room by anesthesia. She was positioned on the OR table where a general anesthetic, preoperative antibiotics, and TXA were given. Once the patient was under anesthetic we positioned her on the OR table. A bump was placed under her right side internally rotating the leg. A bone foam ramp was placed under the right leg to facilitate imaging. The left leg was secured to the table with foam and tape. Nonsterile drapes were applied to include the right leg. The right leg was then prepped and draped in the standard sterile fashion. Prior to starting surgery timeout was performed identifying the correct patient, operative extremity, and procedure. I began by making a straight lateral incision to the femur starting just proximal to the end of the hip stem extending distally to the level of the knee joint. Skin incision was made with a scalpel and dissection was carried down ca refully through subcu in his tissues with electrocautery. The IT band was incised longitudinally in line with the skin incision. I then elevated the vastus lateralis off the intermuscular septum using electrocautery down to the lateral femur. Perforating arteries were controlled with bipolar sealant. The fracture site was identified and the femur was exposed proximally and distally. There was a large intercalary butterfly fragment between the distal and proximal shaft. The fracture site was gently opened and consolidating hematoma was carefully removed. At this point the fracture was carefully reduced using longitudinal traction and rotation. It was keyed in distally and clamped. A cable was carefully passed, tightened, and crimped nicely reducing the butterfly fragment to the distal shaft. Once this had been done the distal shaft segment was reduced to the proximal shaft using longitudinal traction and rotation. The fracture was keyed in and clamped. A second wire was passed, tightened, and crimped. Fluoroscopy was then brought in to assess reduction on orthogonal views. At this point a long precontoured locking lateral femur plate was selected. Its position was assessed using fluoroscopy. The plate was then bent with a plate phipps to contour to the patient's anatomy. Nonlocking screws were placed proximally and distally to the fracture nicely bring the plate down to bone. Distally 2 additional nonlocking screws were placed to better contour the plate to the patient's anatomy and to prevent hardware prominence. Locking screws were placed proximally and distally. An additional 2 cables were placed proximally around the hip replacement. All cables were then cut. Final fluoroscopic images were taken showing excellent reduction of the fracture, acceptable his addition of the hardware, and stable hip and knee replacements. The wound was then thoroughly irrigated and closed in layers. A subcuticular Monocryl and skin glue were used for the skin. A sterile dressing was applied. The drapes were taken down and an Reji wrap was applied from the proximal thigh distally to the foot. The patient was placed in a knee immobilizer. She was then transferred from the OR table to a gurney, extubated, and brought to recovery having tolerated the procedure well. James Dewitt PAC was required as a skilled traffic assistant due to the complexity of surgery for patient positioning, draping, retraction, reduction, placement of hardware, closure of wound and application of dressing. PLAN: TTWB right LE. Leave knee immobilizer and REJI wrap on for 48 hours. 2 doses post op antibiotics. DVT prophylaxis with Eliquis 2.5 mg bid x 35 days. IM for medical management. Likely d/c to [facility] or SNF.
[2024-09-11] MEDS: SODIUM CHLORIDE 0.9% 1,000 ML IV ONE (18:29)
[2024-09-11] MEDS: LACTATED RINGERS 1,000 ML IV SCH (18:29)
[2024-09-11] MEDS: SENNOSIDES-DOCUSATE SODIUM 1 EACH TAB PO SCH (20:16)
[2024-09-11] MEDS: hydrOXYzine pamoate 25 MG CAP PO PRN (20:16)
[2024-09-11] MEDS: APIXABAN 2.5 MG TABLET PO SCH (20:16)
[2024-09-11 20:18] LABS: Basophils % (A) 0 %; Eosinophils # (A) 0.1 k/uL (0-0.7); Eosinophils % (A) 0 %; HCT 28.5 % (34.0-46.0); Lymphocytes # (A) 0.6 k/uL (1.0-4.8); Lymphocytes % (A) 4 %; MCH 30.1 pg (25.0-35.0); MCHC 32.9 g/dL (31.0-37.0); MCV 91.5 fL (80.0-100.0); Mean Platelet Volume 7.4; Monocytes # (A) 0.4 k/uL (0-1.0); Monocytes % (A) 3 %; Neutrophils # (A) 13.6 k/uL (1.3-7.7); Neutrophils % (A) 92 %; Platelet Count 306 k/uL (150-450); RBC 3.11 m/uL (3.80-5.40); RDW 14.8 % (11.5-15.5); WBC 14.8 k/uL (3.8-10.6)
[2024-09-11] MEDS: PANTOPRAZOLE 40 MG/10 ML VIAL IVP SCH (20:18)
[2024-09-11 20:20] LABS: HGB 9.4 gm/dL (11.4-16.0)
[2024-09-12] MEDS: LEVOTHYROXINE 75 MCG TAB PO SCH (06:17)
[2024-09-12] MEDS ORDERED: HYDROmorphone 0.5 MG/0.5 ML SYRINGE IVP PRN (07:00)
--- NOTE | 2024-09-12 08:32 | P.PN ---
Subjective Progress Note Date: 09/12/24 Doing well this morning. Pain controlled. Objective - Vital Signs Vital signs: Vital Signs Temp 99.6 F 09/12/24 06:46 Pulse 84 09/12/24 06:46 Resp 18 09/12/24 06:46 BP 122/75 09/12/24 06:46 Pulse Ox 99 09/12/24 06:46 FiO2 Intake & Output 09/11/24 09/12/24 09/12/24 18:59 06:59 18:59 Intake Total 1050 Output Total 550 225 Balance 500 -225 Weight 52.617 kg Intake: IV 1050 Output: Urine 400 225 Estimated Blood Loss 150 Other: Voiding Method Indwelling Catheter Indwelling Catheter - Exam Resting comfortably in bed NAD Alert and can answer questions RIGHT LE: Knee immobilizer and REJI wrap in place. Thigh soft. Foot well perfused with palpable pulse. Moves toes up/down. - Labs CBC & Chem 7: 09/11/24 19:53 09/10/24 18:49 Labs: Abnormal Lab Results - Last 24 Hours (Table) 09/11/24 Range/Units 19:53 WBC 14.8 H (3.8-10.6) k/uL RBC 3.11 L (3.80-5.40) m/uL Hgb 9.4 L D (11.4-16.0) gm/dL Hct 28.5 L (34.0-46.0) % Neutrophils # 13.6 H (1.3-7.7) k/uL Lymphocytes # 0.6 L (1.0-4.8) k/uL Assessment and Plan Assessment: Postoperative day #1 status post ORIF inter-prosthetic femur fracture Plan: 1. Toe-touch weight-bear right lower extremity 2. Leave knee immobilizer in place for 48 hours and can then remove both knee immobilizer and Reji wrap 3. 2 doses postoperative antibiotics 4. DVT prophylaxis with Eliquis 2.5 mg BID 5. Internal medicine for perioperative medical management 6. DISPO: patient would like to go home with her sister and have home health care but she may need discharge to rehab or SNF
[2024-09-12] MEDS: ATORVASTATIN 10 MG TAB PO SCH (10:17)
--- NOTE | 2024-09-12 14:00 | P.PN ---
Subjective Progress Note Date: 09/12/24 This is a pleasant 79-year-old female who presented to the emergency department via EMS with a fall although prior to the fall patient reports she took an awkward step and heard a crack of the left leg and then immediately fell with inability to stand up and experiencing immense pain. Patient was brought in for further evaluation and noted to have an acute distal femur diaphysis fracture which demonstrates fragments closely approximating the total knee arthroplasty hardware suggestive of a periprosthetic fracture with anterior angulation and shortening of the left lower extremity. Patient reports she follows with Dr. Torres in the outpatient setting with a past medical history of hyperlipidemia, hypertension, hypothyroid, previous bilateral knee replacements and bilateral hips. Patient lives alone and completely independent without a walker or cane prior to this event. Patient was admitted under orthopedics with medical on for surgical clearance. Given patient's age and comorbidities, patient considered low risk for surgical intervention. EKG was reviewed which shows sinus rhythm, chest x-ray negative for acute process and patient was also given a liter bolus in the ER. Recommend discontinuing fluids once patient is able to tolerate diet. Patient reports she has a significant history of intolerance to anesthesia and pain medications with severe nausea. Will continue with Zofran and add Reglan as needed as well. Patient is currently n.p.o. and scheduled to undergo surgical intervention today. 09/12. Patient seen and examined. Patient underwent ORIF inter-prosthetic femur fracture. states left thigh pain has improved. REVIEW OF SYSTEMS: CONSTITUTIONAL: No fever, no malaise,. CARDIOVASCULAR: No chest pain, no palpitations, no syncope. PULMONARY: No shortness of breath, no cough, GASTROINTESTINAL: No diarrhea, no nausea, no vomiting, no abdominal pain. NEUROLOGICAL: No headaches, no weakness, PHYSICAL EXAMINATION: GENERAL: The patient is alert and oriented x3, not in any acute distress. Well developed, well nourished. HEENT: Pupils are round and equally reacting to light. EOMI. No scleral icterus. No conjunctival pallor. Normocephalic, atraumatic. No pharyngeal erythema. No thyromegaly. CARDIOVASCULAR: S1 and S2 present. No murmurs, rubs, or gallops. PULMONARY: Chest is clear to auscultation, no wheezing or crackles. ABDOMEN: Soft, nontender, nondistended, normoactive bowel sounds. No palpable organomegaly. MUSCULOSKELETAL: Left thigh surgical incision EXTREMITIES: No cyanosis, clubbing, or pedal edema. NEUROLOGICAL: Gross neurological examination did not reveal any focal deficits. SKIN: No rashes. Assessment and plan Left lower extremity pain secondary to periprosthetic fracture of the distal femur diaphysis closely approximating the previous left total knee arthroplasty Fall from ground-level secondary to above, patient reports she heard a crack and then fell and was unable to ambulate Acute blood loss anemia History of hyperlipidemia History of hypertension History of hypothyroidism History of previous bilateral knee replacements along with bilateral hips Monitor vital sign Monitor CBC Status post ORIF inter-prosthetic femur fracture Continue pain management per orthopedics Continue DVT prophylaxis per orthopedics in the form of following Continue home meds PT and OT consulted Labs and medication were reviewed.. Continue same treatment. Continue with symptomatic treatment. Resume home medication. Monitor labs and vitals. DVT and GI prophylaxis. Further recommendations as per clinical course of the patient Dictation was produced using [employer] dictation software. please excuse any grammatical, word or spelling errors. Objective - Vital Signs Vital signs: Vital Signs Temp 99.6 F 09/12/24 06:46 Pulse 84 09/12/24 06:46 Resp 18 09/12/24 06:46 BP 122/75 09/12/24 06:46 Pulse Ox 99 09/12/24 06:46 FiO2 Intake & Output 09/11/24 09/12/24 09/12/24 18:59 06:59 18:59 Intake Total 1050 Output Total 550 225 Balance 500 -225 Weight 52.617 kg Intake: IV 1050 Output: Urine 400 225 Estimated Blood Loss 150 Other: Voiding Method Indwelling Catheter Indwelling Catheter - Labs CBC & Chem 7: 09/11/24 19:53 09/10/24 18:49 Labs: Abnormal Lab Results - Last 24 Hours (Table) 09/11/24 Range/Units 19:53 WBC 14.8 H (3.8-10.6) k/uL RBC 3.11 L (3.80-5.40) m/uL Hgb 9.4 L D (11.4-16.0) gm/dL Hct 28.5 L (34.0-46.0) % Neutrophils # 13.6 H (1.3-7.7) k/uL Lymphocytes # 0.6 L (1.0-4.8) k/uL
--- NOTE | 2024-09-13 09:14 | P.PN ---
Subjective Progress Note Date: 09/13/24 The patient is doing relatively well as morning. She has minimal pain in her right thigh. The patient was out of bed in a chair yesterday for most of the day per nursing. She has no other complaints. Objective - Vital Signs Vital signs: Vital Signs Temp 99.0 F 09/13/24 06:59 Pulse 77 09/13/24 06:59 Resp 18 09/13/24 06:59 BP 145/77 09/13/24 06:59 Pulse Ox 96 09/13/24 06:59 FiO2 Intake & Output 09/12/24 09/13/24 09/13/24 18:59 06:59 18:59 Output Total 775 Balance -775 Output: Urine 775 - Exam Patient is resting comfortably in bed. She is alert and able to answer questions. The knee immobilizer and Reji wrap were taken off of her right leg. She has a clean and intact dressing over the lateral aspect of the thigh. There is no drainage or strike through. Her thigh is soft and compressible. She is able to actively plantar flex and dorsiflex her ankle and her toes. Femoral nerve function is intact. Her foot is warm and well perfused with brisk capillary refill. She has a palpable dorsalis pedis pulse. - Labs CBC & Chem 7: 09/11/24 19:53 09/10/24 18:49 Assessment and Plan Assessment: Postoperative day #2 status post open reduction internal fixation inter- prosthetic femur fracture Plan: Continue treatment as outlined yesterday. The Reji wrap and knee immobilizer were removed and did not need to be placed again. We've surgical dressing in place. Continue toe-touch weightbearing on the right lower extremity. Mobilize out of bed into a chair. Appreciate internal medicine's assistance with perioperative medical management. DVT prophylaxis with Eliquis 2.5 mg BID. Physical therapy is recommending discharge to [facility], likely in the next 24-28 hours.
[2024-09-13 10:14] LABS: Basophils # (A) 0.03 X 10*3/uL (0.00-0.10); Basophils % (A) 0.3 %; Eosinophils # (A) 0.06 X 10*3/uL (0.04-0.35); Eosinophils % (A) 0.7 %; HGB 7.2 g/dL (12.0-15.0); Lymphocytes # (A) 1.52 X 10*3/uL (0.90-5.00); Lymphocytes % (A) 17.7 %; MCH 29.9 pg (27.0-32.0); MCHC 32.7 g/dL (32.0-37.0); MCV 91.3 FL (80.0-97.0); Mean Platelet Volume 10.5 FL (9.5-12.2); Monocytes # (A) 1.21 X 10*3/uL (0.20-1.00); Monocytes % (A) 14.1 %; NRBC Per 100 WBC 0 X 10*3/uL (0.00-0.01); Neutrophils # (A) 5.76 X 10*3/uL (1.80-7.70); Neutrophils % (A) 66.9 %; Platelet Count 210 X 10*3/uL (140-440); RBC 2.41 X 10*6/uL (4.10-5.20); RDW 15.2 % (11.5-14.5); WBC 8.61 X 10*3/uL (4.50-10.00)
[2024-09-13 10:51] LABS: ALT 14 U/L (8-44); AST 63 U/L (13-35); Albumin/Globulin Ratio 1.76 Ratio (1.60-3.17); Alkaline Phosphatase 54 U/L (41-126); BUN/Creat Ratio 21.12 Ratio (12.00-20.00); Blood Urea Nitrogen 16.9 mg/dL (9.0-27.0); Calcium 7.7 mg/dL (8.7-10.3); Carbon Dioxide 21.5 mmol/L (21.6-31.8); Chloride 104 mmol/L (96-109); Globulin 1.7 g/dL (1.6-3.3); Glucose 120 mg/dL (70-110); Potassium 3.5 mmol/L (3.5-5.5); Sodium 134 mmol/L (135-145); Total Bilirubin 0.3 mg/dL (0.3-1.2); Total Protein 4.7 g/dL (6.2-8.2)
--- NOTE | 2024-09-13 12:10 | P.PN ---
Subjective Progress Note Date: 09/13/24 This is a pleasant 79-year-old female who presented to the emergency department via EMS with a fall although prior to the fall patient reports she took an awkward step and heard a crack of the left leg and then immediately fell with inability to stand up and experiencing immense pain. Patient was brought in for further evaluation and noted to have an acute distal femur diaphysis fracture which demonstrates fragments closely approximating the total knee arthroplasty hardware suggestive of a periprosthetic fracture with anterior angulation and shortening of the left lower extremity. Patient reports she follows with Dr. Torres in the outpatient setting with a past medical history of hyperlipidemia, hypertension, hypothyroid, previous bilateral knee replacements and bilateral hips. Patient lives alone and completely independent without a walker or cane prior to this event. Patient was admitted under orthopedics with medical on for surgical clearance. Given patient's age and comorbidities, patient considered low risk for surgical intervention. EKG was reviewed which shows sinus rhythm, chest x-ray negative for acute process and patient was also given a liter bolus in the ER. Recommend discontinuing fluids once patient is able to tolerate diet. Patient reports she has a significant history of intolerance to anesthesia and pain medications with severe nausea. Will continue with Zofran and add Reglan as needed as well. Patient is currently n.p.o. and scheduled to undergo surgical intervention today. 09/12. Patient seen and examined. Patient underwent ORIF inter-prosthetic femur fracture. states left thigh pain has improved. 09/13. Patient seen and examined. Encourage use of I-S. REVIEW OF SYSTEMS: CONSTITUTIONAL: No fever, no malaise,. CARDIOVASCULAR: No chest pain, no palpitations, no syncope. PULMONARY: No shortness of breath, no cough, GASTROINTESTINAL: No diarrhea, no nausea, no vomiting, no abdominal pain. NEUROLOGICAL: No headaches, no weakness, PHYSICAL EXAMINATION: GENERAL: The patient is alert and oriented x3, not in any acute distress. Well developed, well nourished. HEENT: Pupils are round and equally reacting to light. EOMI. No scleral icterus. No conjunctival pallor. Normocephalic, atraumatic. No pharyngeal erythema. No thyromegaly. CARDIOVASCULAR: S1 and S2 present. No murmurs, rubs, or gallops. PULMONARY: Chest is clear to auscultation, no wheezing or crackles. ABDOMEN: Soft, nontender, nondistended, normoactive bowel sounds. No palpable organomegaly. MUSCULOSKELETAL: Left thigh surgical incision EXTREMITIES: No cyanosis, clubbing, or pedal edema. NEUROLOGICAL: Gross neurological examination did not reveal any focal deficits. SKIN: No rashes. Assessment and plan Left lower extremity pain secondary to periprosthetic fracture of the distal femur diaphysis closely approximating the previous left total knee arthroplasty Fall from ground-level secondary to above, patient reports she heard a crack and then fell and was unable to ambulate Acute blood loss anemia History of hyperlipidemia History of hypertension History of hypothyroidism History of previous bilateral knee replacements along with bilateral hips Monitor vital sign Monitor CBC Status post ORIF inter-prosthetic femur fracture Continue pain management per orthopedics Continue DVT prophylaxis per orthopedics in the form of Eliquis Continue home meds PT and OT commend rehab Labs and medication were reviewed.. Continue same treatment. Continue with s ymptomatic treatment. Resume home medication. Monitor labs and vitals. DVT and GI prophylaxis. Further recommendations as per clinical course of the patient Dictation was produced using [employer] dictation software. please excuse any grammatical, word or spelling errors. Objective - Vital Signs Vital signs: Vital Signs Temp 99.0 F 09/13/24 06:59 Pulse 77 09/13/24 06:59 Resp 18 09/13/24 06:59 BP 145/77 09/13/24 06:59 Pulse Ox 96 09/13/24 06:59 FiO2 Intake & Output 09/12/24 09/13/24 09/13/24 18:59 06:59 18:59 Output Total 775 Balance -775 Output: Urine 775 - Labs CBC & Chem 7: 09/13/24 03:57 09/13/24 03:57
--- NOTE | 2024-09-14 08:03 | P.PN ---
Subjective Progress Note Date: 09/14/24 The patient continues to do relatively well this morning. She has pain to palpation in her right thigh. The patient has been up out of bed to chair. No acute events overnight per nursing staff. Patient had a blood transfusion yesterday. Objective - Vital Signs Vital signs: Vital Signs Temp 97.0 F L 09/14/24 07:48 Pulse 81 09/14/24 07:48 Resp 16 09/14/24 07:48 BP 148/82 09/14/24 07:48 Pulse Ox 96 09/14/24 07:48 FiO2 Intake & Output 09/13/24 09/14/24 09/14/24 18:59 06:59 18:59 Intake Total 310 Output Total 1899 1999 Balance -1589 -1999 Intake: Blood Product 310 Rc As-1 Unit 310 [id number] Output: Urine 1899 1999 Uretheral (Quarles) 1000 Other: Voiding Method Indwelling Catheter # Bowel Movements 0 - Exam Patient is resting comfortably in bed. She is awake, alert and able to answer questions. She has a clean and intact dressing over the lateral aspect of the thigh. There is no drainage or strike through. There is no surrounding erythema. Her thigh is soft and compressible. She is able to actively plantar flex and dorsiflex her ankle and her toes. Femoral nerve function is intact. Her foot is warm and well perfused with brisk capillary refill. - Labs CBC & Chem 7: 09/13/24 03:57 09/13/24 03:57 Labs: Abnormal Lab Results - Last 24 Hours (Table) 09/13/24 09/13/24 09/13/24 Range/Units 03:57 03:57 13:39 RBC 2.41 L (4.10-5.20) X 10*6/uL Hgb 7.2 L (12.0-15.0) g/dL Hct 22.0 L (37.2-46.3) % RDW 15.2 H (11.5-14.5) % Monocytes # 1.21 H (0.20-1.00) X 10*3/uL Sodium 134 L (135-145) mmol/L Carbon Dioxide 21.5 L (21.6-31.8) mmol/L BUN/Creatinine Ratio 21.12 H (12.00-20.00) Ratio Glucose 120 H (70-110) mg/dL Calcium 7.7 L (8.7-10.3) mg/dL AST 63 H (13-35) U/L Total Protein 4.7 L (6.2-8.2) g/dL Albumin 3.0 L (3.8-4.9) g/dL Crossmatch See Detail Assessment and Plan Assessment: Postoperative day #3 status post open reduction internal fixation inter- prosthetic femur fracture Right thigh pain. Status post ground-level fall. Prior right total hip arthroplasty Prior right total knee arthroplasty Plan: Continue treatment as outlined. Leave surgical dressing in place. No sign of any drainage. Continue toe-touch weightbearing on the right lower extremity. Mobilize out of bed into a chair. Appreciate internal medicine's assistance with perioperative medical management. DVT prophylaxis with Eliquis 2.5 mg BID. Physical therapy is recommending discharge to [facility]. Has had urinary retention. Has had low hemoglobin. Patient may transfer to rehab from an orthopedic standpoint when medical conditions have stabilized and cleared by medical team. Likely stay another night. Dictation done with [employer], please excuse spelling errors.
[2024-09-14 08:33] LABS: Basophils # (A) 0.04 X 10*3/uL (0.00-0.10); Basophils % (A) 0.4 %; Eosinophils # (A) 0.09 X 10*3/uL (0.04-0.35); Eosinophils % (A) 0.8 %; HCT 25.7 % (37.2-46.3); HGB 8.5 g/dL (12.0-15.0); Lymphocytes # (A) 1.97 X 10*3/uL (0.90-5.00); Lymphocytes % (A) 18.1 %; MCHC 33.1 g/dL (32.0-37.0); MCV 90.8 FL (80.0-97.0); Mean Platelet Volume 10.4 FL (9.5-12.2); Monocytes # (A) 1.14 X 10*3/uL (0.20-1.00); Monocytes % (A) 10.5 %; NRBC Per 100 WBC 0 X 10*3/uL (0.00-0.01); Neutrophils # (A) 7.57 X 10*3/uL (1.80-7.70); Neutrophils % (A) 69.5 %; Platelet Count 210 X 10*3/uL (140-440); RBC 2.83 X 10*6/uL (4.10-5.20); RDW 14.5 % (11.5-14.5); WBC 10.89 X 10*3/uL (4.50-10.00)
[2024-09-14 10:11] LABS: Basophils # (A) 0.03 X 10*3/uL (0.00-0.10); Basophils % (A) 0.3 %; Eosinophils # (A) 0.14 X 10*3/uL (0.04-0.35); Eosinophils % (A) 1.3 %; HCT 26.1 % (37.2-46.3); Lymphocytes % (A) 12.6 %; MCHC 34.5 g/dL (32.0-37.0); NRBC Per 100 WBC 0 X 10*3/uL (0.00-0.01); Neutrophils # (A) 8.51 X 10*3/uL (1.80-7.70); Neutrophils % (A) 76.3 %; Platelet Count 225 X 10*3/uL (140-440); RDW 14.7 % (11.5-14.5); WBC 11.14 X 10*3/uL (4.50-10.00)
--- NOTE | 2024-09-14 16:15 | P.PN ---
Subjective Progress Note Date: 09/14/24 This is a pleasant 79-year-old female who presented to the emergency department via EMS with a fall although prior to the fall patient reports she took an awkward step and heard a crack of the left leg and then immediately fell with inability to stand up and experiencing immense pain. Patient was brought in for further evaluation and noted to have an acute distal femur diaphysis fracture which demonstrates fragments closely approximating the total knee arthroplasty hardware suggestive of a periprosthetic fracture with anterior angulation and shortening of the left lower extremity. Patient reports she follows with Dr. Torres in the outpatient setting with a past medical history of hyperlipidemia, hypertension, hypothyroid, previous bilateral knee replacements and bilateral hips. Patient lives alone and completely independent without a walker or cane prior to this event. Patient was admitted under orthopedics with medical on for surgical clearance. Given patient's age and comorbidities, patient considered low risk for surgical intervention. EKG was reviewed which shows sinus rhythm, chest x-ray negative for acute process and patient was also given a liter bolus in the ER. Recommend discontinuing fluids once patient is able to tolerate diet. Patient reports she has a significant history of intolerance to anesthesia and pain medications with severe nausea. Will continue with Zofran and add Reglan as needed as well. Patient is currently n.p.o. and scheduled to undergo surgical intervention today. 09/12. Patient seen and examined. Patient underwent ORIF inter-prosthetic femur fracture. states left thigh pain has improved. 09/13. Patient seen and examined. Encourage use of I-S. 09/14/2024 Patient is seen in follow-up today with no acute overnight issues noted. Plan is for patient to go to [facility] currently awaiting insurance authorization. Home medications reviewed and resumed as appropriate and will resume blood pressure medications as needed. Patient to continue using incentive spirometer at least 10 times every hour while awake. Continue with antinausea medications with pain management as patient becomes extremely nauseated with any type of pain med. Patient is medically stable once cleared by orthopedics for discharge to [facility]. Recommend PT/OT therapy daily. REVIEW OF SYSTEMS: CONSTITUTIONAL: No fever, no malaise,. CARDIOVASCULAR: No chest pain, no palpitations, no syncope. PULMONARY: No shortness of breath, no cough, GASTROINTESTINAL: No diarrhea, no nausea, no vomiting, no abdominal pain. NEUROLOGICAL: No headaches, reports of generalized weakness, reports continued left hip pain PHYSICAL EXAMINATION: GENERAL: The patient is alert and oriented x3, Well developed, elderly appearing HEENT: Pupils are round and equally reacting to light. EOMI. No scleral icterus. No conjunctival pallor. Normocephalic, atraumatic. No pharyngeal erythema. No thyromegaly. CARDIOVASCULAR: S1 and S2 muffled PULMONARY: Diminished breath sounds bilaterally otherwise chest is clear to auscultation, no wheezing or crackles. ABDOMEN: Soft, nontender, nondistended, normoactive bowel sounds. No palpable organomegaly. MUSCULOSKELETAL: Left thigh surgical incision dry and intact with no significant swelling noted EXTREMITIES: No cyanosis, clubbing, or pedal edema. NEUROLOGICAL: Gross neurological examination did not reveal any focal deficits. Diffusely weak SKIN: No rashes. Assessment:: Left lower extremity pain secondary to periprosthetic fracture of the distal femur diaphysis closely approximating the previous left total knee arthroplasty, status post ORIF of the inter prosthetic femur fracture Fall from ground-level secondary to above, patient reports she heard a crack and then fell and was unable to ambulate Acute blood loss anemia History of hyperlipidemia History of hypertension History of hypothyroidism History of previous bilateral knee replacements along with bilateral hips GI prophylaxis DVT prophylaxis Full code Plan: Continue with current pain regimen and DVT prophylaxis per orthopedics. Patient is continued on Eliquis Home medications reviewed and resumed and will resume blood pressure medications on discharge Patient evaluated by physical therapy recommending rehab and patient is agreeable currently looking into [facility]. Case management following and will require insurance authorization Encourage incentive spirometer at least 10 times every hour while awake We will continue to follow with orthopedics during hospitalization. Thank you kindly for this consultation. The impression and plan of care has been dictated by Roxana Russ, Nurse Practitioner as directed. Dr. Cal MD I have performed a history and examination and MDM of this patient, discussed the same with the dictator, and agree with the dictator's assessment and plan as written ,documented as a scribe. Based on total visit time, I have performed more than 50% of the visit. Objective - Vital Signs Vital signs: Vital Signs Temp 97.8 F 09/14/24 13:54 Pulse 94 09/14/24 13:54 Resp 16 09/14/24 13:54 BP 119/72 09/14/24 13:54 Pulse Ox 96 09/14/24 13:54 FiO2 Intake & Output 09/13/24 09/14/24 09/14/24 18:59 06:59 18:59 Intake Total 310 Output Total 1899 1999 Balance -1589 -1999 Intake: Blood Product 310 Rc As-1 Unit 310 [id number] Output: Urine 1899 1999 Uretheral (Quarles) 1000 Other: Voiding Method Indwelling Catheter Indwelling Catheter # Bowel Movements 0 - Labs CBC & Chem 7: 09/14/24 07:13 09/13/24 03:57 Labs: Abnormal Lab Results - Last 24 Hours (Table) 09/13/24 09/13/24 09/14/24 Range/Units 13:39 21:27 07:13 WBC 10.89 H 11.14 H (4.50-10.00) X 10*3/uL RBC 2.83 L 2.90 L (4.10-5.20) X 10*6/uL Hgb 8.5 L 9.0 L (12.0-15.0) g/dL Hct 25.7 L 26.1 L (37.2-46.3) % RDW 14.7 H (11.5-14.5) % Immature Gran # 0.08 H 0.06 H (0.00-0.04) X 10*3/uL Neutrophils # 8.51 H (1.80-7.70) X 10*3/uL Monocytes # 1.14 H (0.20-1.00) X 10*3/uL Crossmatch See Detail
--- NOTE | 2024-09-15 08:56 | P.DS ---
Providers Date of admission: 09/10/24 19:44 Attending physician: Alek Banda Consults: 09/10/24 19:41 Consult Physician Urgent Consulting Provider: Raifq Mccall Consult Reason/Comments: Medical clearance for surgery Do you want consulting provider notified?: Yes [facility] Course: Patient is a pleasant 79-year-old female who presented to the emergency [facility] for right thigh pain status post ground level fall on 09/10/2024. Patient states she was at the [facility] alle and as she turned around she felt a snap in her right femur and fell to the ground. She immediately had pain. She was not able to ambulate afterward. She was brought to the emergency department where x-rays were taken. X-rays of the right femur dated 09/10/2024 images were reviewed and show an acute distal femur diaphysis fracture which demonstrates fragments closely approximating total knee arthroplasty hardware in the femur. Anterior angulation with shortening, and approximately 19 mm of displacement. Right total hip arthroplasty appears intact. Severe atherosclerosis of the arterial vasculature. Previously the patient was able to ambulate on her own without a cane or walker. Patient states that she currently lives alone in her home. Patient states she had bilateral total knee replacements done by Dr. Riley approximately 4 years ago, and has complained of bilateral weakness in the knees since. Patient underwent open reduction internal fixation of right inter-prosthetic femur fracture on 09/11/[address] Banda. Patient tolerated the procedure well. Patient was transferred to the orthopedic floor. In the postoperative period patient had low hemoglobin and had 1 transfusion. Patient's pain has been well-controlled. Patient had nausea with opioid pain medication and patient stated she does not want to take Quartzsite or tramadol. Patient states her pain has been controlled with oral Tylenol. Patient was examined at bedside this morning and the dressing is clean, dry, intact, free from surrounding erythema or drainage. Patient is to be toe-touch weightbearing for 6 weeks following surgery. Patient was evaluated by physical therapy and correction facility was recommended. Assessment: Ground-level fall Right thigh pain. Right interprostatic femur fracture status post ORIF on 09/11/[address] Banda Plan - Discharge Summary Discharge Rx Participant: No New Discharge Prescriptions: New HYDROcodone/APAP 5-325MG [Quartzsite 5] 1 - 2 each PO Q6HR PRN #48 tab PRN Reason: Pain Ondansetron [Zofran] 4 mg PO Q6HR PRN #30 tab PRN Reason: Nausea Melatonin 3 mg PO HS PRN tab PRN Reason: Insomnia Docusate [Colace] 100 mg PO BID #60 capsule Acetaminophen [Acetaminophen ER] 650 mg PO Q6HR PRN #60 tab PRN Reason: Pain Magnesium Hydroxide [Milk of Magnesia] 2,400 mg PO DAILY PRN ml PRN Reason: Constipation Continue Losartan Potassium [Cozaar] 100 mg PO DAILY Levothyroxine Sodium [Synthroid] 75 mcg PO DAILY Atorvastatin [Lipitor] 10 mg PO DAILY hydroCHLOROthiazide [Hydrodiuril] 25 mg PO DAILY Discharge Medication List Atorvastatin [Lipitor] 10 mg PO DAILY 09/10/24 [History] Levothyroxine Sodium [Synthroid] 75 mcg PO DAILY 09/10/24 [History] Losartan Potassium [Cozaar] 100 mg PO DAILY 09/10/24 [History] hydroCHLOROthiazide [Hydrodiuril] 25 mg PO DAILY 09/10/24 [History] Docusate [Colace] 100 mg PO BID #60 capsule 09/11/24 [Rx] HYDROcodone/APAP 5-325MG [Quartzsite 5] 1 - 2 each PO Q6HR PRN #48 tab 09/11/24 [Rx] Ondansetron [Zofran] 4 mg PO Q6HR PRN #30 tab 09/11/24 [Rx] Acetaminophen [Acetaminophen ER] 650 mg PO Q6HR PRN #60 tab 09/14/24 [Rx] Magnesium Hydroxide [Milk of Magnesia] 2,400 mg PO DAILY PRN ml 09/14/24 [Rx] Melatonin 3 mg PO HS PRN tab 09/14/24 [Rx] Follow up Appointment(s)/Referral(s): Renetta Torres MD [Primary Care Provider] - 1-2 days Alek Banda MD [Medical Doctor] - 2 Weeks Activity/Diet/Wound Care/Special Instructions: 1. Toe-touch weight-bear with walker for 6 weeks. 2. Leave surgical dressing in place. If your dressing becomes saturated with blood, there is drainage, or the dressing becomes loose please contact the office. 3. It is okay to shower with your surgical dressing, but do not submerge in water (no hot tubs, bath's, swimming etc.) 4. Take your blood clot prevention medication as prescribed (aspirin, Eliquis, Xarelto, and Plavix are commonly prescribed medications for blood clot prevention) 5. While taking Quartzsite or Percocet for pain take a stool softener (Ex: Colace) and drink lots of water. 6. Keep all follow-up appointments as scheduled. You will usually be seen in 1-2 weeks following surgery. 7. Please contact the office with any questions or concerns [phone] Discharge Disposition: TRANSFER TO SNF/ECF
--- NOTE | 2024-09-15 09:20 | P.PN ---
Subjective Progress Note Date: 09/15/24 This is a pleasant 79-year-old female who presented to the emergency department via EMS with a fall although prior to the fall patient reports she took an awkward step and heard a crack of the left leg and then immediately fell with inability to stand up and experiencing immense pain. Patient was brought in for further evaluation and noted to have an acute distal femur diaphysis fracture which demonstrates fragments closely approximating the total knee arthroplasty hardware suggestive of a periprosthetic fracture with anterior angulation and shortening of the left lower extremity. Patient reports she follows with Dr. Torres in the outpatient setting with a past medical history of hyperlipidemia, hypertension, hypothyroid, previous bilateral knee replacements and bilateral hips. Patient lives alone and completely independent without a walker or cane prior to this event. Patient was admitted under orthopedics with medical on for surgical clearance. Given patient's age and comorbidities, patient considered low risk for surgical intervention. EKG was reviewed which shows sinus rhythm, chest x-ray negative for acute process and patient was also given a liter bolus in the ER. Recommend discontinuing fluids once patient is able to tolerate diet. Patient reports she has a significant history of intolerance to anesthesia and pain medications with severe nausea. Will continue with Zofran and add Reglan as needed as well. Patient is currently n.p.o. and scheduled to undergo surgical intervention today. 09/12. Patient seen and examined. Patient underwent ORIF inter-prosthetic femur fracture. states left thigh pain has improved. 09/13. Patient seen and examined. Encourage use of I-S. 09/14/2024 Patient is seen in follow-up today with no acute overnight issues noted. Plan is for patient to go to [facility] currently awaiting insurance authorization. Home medications reviewed and resumed as appropriate and will resume blood pressure medications as needed. Patient to continue using incentive spirometer at least 10 times every hour while awake. Continue with antinausea medications with pain management as patient becomes extremely nauseated with any type of pain med. Patient is medically stable once cleared by orthopedics for discharge to [facility]. Recommend PT/OT therapy daily. 09/15/2024 Patient is seen in follow-up status post ORIF on the left doing well postsurgi pham. Patient is medically stable and will be going to [facility] for continued strength and mobility. Patient has been cleared by orthopedics recommending outpatient follow-up. Patient also instructed to follow-up with primary care provider on discharge from [facility]. Patient is afebrile with denial of any chest pain or shortness of breath. Patient has been encouraged to use incentive spirometer even at the [facility]. Home and occasions reviewed and resumed as appropriate REVIEW OF SYSTEMS: CONSTITUTIONAL: No fever, no malaise,. CARDIOVASCULAR: No chest pain, no palpitations, no syncope. PULMONARY: No shortness of breath, no cough, GASTROINTESTINAL: No diarrhea, no nausea, no vomiting, no abdominal pain. NEUROLOGICAL: No headaches, reports of generalized weakness, reports continued left hip pain PHYSICAL EXAMINATION: GENERAL: The patient is alert and oriented x3, Well developed, elderly appearing HEENT: Pupils are round and equally reacting to light. EOMI. No scleral icterus. No conjunctival pallor. Normocephalic, atraumatic. No pharyngeal erythema. No thyromegaly. CARDIOVASCULAR: S1 and S2 muffled PULMONARY: Diminished breath sounds bilaterally otherwise chest is clear to aus cultation, no wheezing or crackles. ABDOMEN: Soft, nontender, nondistended, normoactive bowel sounds. No palpable organomegaly. MUSCULOSKELETAL: Left thigh surgical incision dry and intact with no significant swelling noted EXTREMITIES: No cyanosis, clubbing, or pedal edema. NEUROLOGICAL: Gross neurological examination did not reveal any focal deficits. Diffusely weak SKIN: No rashes. Assessment:: Left lower extremity pain secondary to periprosthetic fracture of the distal femur diaphysis closely approximating the previous left total knee arthroplasty, status post ORIF of the inter prosthetic femur fracture Fall from ground-level secondary to above, patient reports she heard a crack and then fell and was unable to ambulate Acute blood loss anemia History of hyperlipidemia History of hypertension History of hypothyroidism History of previous bilateral knee replacements along with bilateral hips GI prophylaxis DVT prophylaxis Full code Plan: Continue with current pain regimen and DVT prophylaxis per orthopedics. Patient is continued on Eliquis Home medications reviewed and resumed home blood pressure medications Patient evaluated by physical therapy recommending rehab and patient is agreeable currently looking into [facility]. Case management following and will be discharged today. Encourage incentive spirometer at least 10 times every hour while awake Instructed patient to follow-up with primary care provider on discharge. Patient is medically stable once cleared by orthopedics. We will continue to follow with orthopedics during hospitalization. Thank you kindly for this consultation. The impression and plan of care has been dictated by Roxana Russ, Nurse Practitioner as directed. Dr. Cal MD I have performed a history and examination and MDM of this patient, discussed the same with the dictator, and agree with the dictator's assessment and plan as written ,documented as a scribe. Based on total visit time, I have performed more than 50% of the visit. Objective - Vital Signs Vital signs: Vital Signs Temp 98 F 09/15/24 06:57 Pulse 68 09/15/24 06:57 Resp 14 09/15/24 06:57 BP 120/67 09/15/24 06:57 Pulse Ox 99 09/15/24 06:57 FiO2 Intake & Output 09/14/24 09/15/24 09/15/24 18:59 06:59 18:59 Other: Voiding Method Indwelling Catheter Toilet Bedside Commode # Voids 1 - Labs CBC & Chem 7: 09/14/24 07:13 09/13/24 03:57 Labs: Abnormal Lab Results - Last 24 Hours (Table) 09/14/24 Range/Units 07:13 WBC 11.14 H (4.50-10.00) X 10*3/uL RBC 2.90 L (4.10-5.20) X 10*6/uL Hgb 9.0 L (12.0-15.0) g/dL Hct 26.1 L (37.2-46.3) % RDW 14.7 H (11.5-14.5) % Immature Gran # 0.06 H (0.00-0.04) X 10*3/uL Neutrophils # 8.51 H (1.80-7.70) X 10*3/uL
[2024-09-15 14:24] VITALS: BP 115/69; PULSE 87; RESP 13; TEMP 98.3
== END 2024-09-15 15:07 | DRG 481 ==
LOC: EC 18:13 → 4SSUR 19:44
PROVIDERS: ADMIT Orthopaedic Surgery; ATTEND Orthopaedic Surgery
PROC: 0QSB04Z Reposition Right Lower Femur with Internal Fixation Device, Open Approach (ICD-10-PCS; principal; 2024-09-11 10:50)
PROC: 30233N1 Transfusion of Nonautologous Red Blood Cells into Peripheral Vein, Percutaneous Approach (ICD-10-PCS; 2024-09-13)
DX: S72.491A Other fracture of lower end of right femur, initial encounter for closed fracture (principal); D62 Acute posthemorrhagic anemia; M97.11XA Periprosthetic fracture around internal prosthetic right knee joint, initial encounter; E03.9 Hypothyroidism, unspecified; E78.5 Hyperlipidemia, unspecified; I10 Essential (primary) hypertension; W18.30XA Fall on same level, unspecified, initial encounter; Z96.653 Presence of artificial knee joint, bilateral; Z96.641 Presence of right artificial hip joint; Y92.39 Other specified sports and athletic area as the place of occurrence of the external cause; Y93.54 Activity, bowling; Z79.890 Hormone replacement therapy; Z79.899 Other long term (current) drug therapy; Z87.891 Personal history of nicotine dependence; Z90.710 Acquired absence of both cervix and uterus
CPT/HCPCS: 27503; 36415; 51702; 71045; 80053; 85025; 85610; 85730; 86850; 86900; 86901; 86920; 93005; 96374; 96375; 96376; 99152; 99153; 99285

== ENCOUNTER 2024-12-01 13:32 | Emergency (ER) | payer MEDICARE ==
[2024-12-01 14:08] VITALS: RESP 18
--- NOTE | 2024-12-01 14:17 | ED ---
Fall HPI - General Chief Complaint: Fall Stated Complaint: fall Time Seen by Provider: 12/01/24 13:39 Source: EMS, RN notes reviewed, old records reviewed Mode of arrival: EMS Limitations: no limitations - History of Present Illness Initial Comments: This is a 79-year-old female after fall. Fall with right hip pain and deformity. Patient is brought in by EMS complaining of severe right hip pain right leg pain history of hip replacement femur surgery as well as knee replacement MD Complaint: fall -: hour(s) When Fall Occurred: 1 hour [employer] Fall Witnessed: yes, by family Place Fall Occurred: home Loss of Consciousness: none Prolonged Down Time?: no Symptoms Prior to Fall: none Location - Extremities: Right: Thigh, Knee Severity: severe Severity scale (1-10): 10 Quality: sharp Context: tripped/slipped Associated Symptoms: denies - Related Data Home Medications Medication Instructions Recorded Confirmed Atorvastatin [Lipitor] 10 mg PO DAILY 09/10/24 09/10/24 Levothyroxine Sodium [Synthroid] 75 mcg PO DAILY 09/10/24 09/10/24 Previous Rx's Medication Instructions Recorded Docusate [Colace] 100 mg PO BID #60 capsule 09/11/24 HYDROcodone/APAP 5-325MG [Sebastian 5] 1 - 2 each PO Q6HR PRN #48 tab 09/11/24 Ondansetron [Zofran] 4 mg PO Q6HR PRN #30 tab 09/11/24 Acetaminophen [Acetaminophen ER] 650 mg PO Q6HR PRN #60 tab 09/14/24 Magnesium Hydroxide [Milk of 2,400 mg PO DAILY PRN ml 09/14/24 Magnesia] Melatonin 3 mg PO HS PRN tab 09/14/24 Allergies Allergy/AdvReac Type Severity Reaction Status Date / Time narcotics AdvReac Nausea & Uncoded 09/11/24 11:49 Vomiting & Diarrhea Review of Systems ROS Statement: Those systems with pertinent positive or pertinent negative responses have been documented in the HPI. ROS Other: All systems not noted in ROS Statement are negative. Past Medical History Past Medical History: Hyperlipidemia, Hypertension, Thyroid Disorder Additional Past Medical History / Comment(s): hypothyroid, History of Any Multi-Drug Resistant Organisms: None Reported Past Surgical History: Adenoidectomy, Appendectomy, Hysterectomy, Joint Replacement, Tonsillectomy Additional Past Surgical History / Comment(s): bilateral knees, bilateral hips, Past Psychological History: No Psychological Hx Reported Smoking Status: Former smoker Past Alcohol Use History: Rare Past Drug Use History: None Reported General Exam Limitations: no limitations General appearance: alert, in no apparent distress Head exam: Present: atraumatic, normocephalic, normal inspection Eye exam: Present: normal appearance, PERRL, EOMI. Absent: scleral icterus, conjunctival injection, periorbital swelling ENT exam: Present: normal exam, mucous membranes moist Neck exam: Present: normal inspection. Absent: tenderness, meningismus, lymphadenopathy Respiratory exam: Present: normal lung sounds bilaterally. Absent: respiratory distress, wheezes, rales, rhonchi, stridor Cardiovascular Exam: Present: regular rate, normal rhythm, normal heart sounds. Absent: systolic murmur, diastolic murmur, rubs, gallop, clicks GI/Abdominal exam: Present: soft, normal bowel sounds. Absent: distended, tenderness, guarding, rebound, rigid Extremities exam: Present: normal inspection, full ROM, normal capillary refill. Absent: tenderness, pedal edema, joint swelling, calf tenderness Back exam: Present: normal inspection Neurological exam: Present: alert, oriented X3, CN II-XII intact Psychiatric exam: Present: normal affect, normal mood Skin exam: Present: warm, dry, intact, normal color. Absent: rash Course Vital Signs 12/01/24 12/01/24 13:50 16:24 Temperature 97.9 F Pulse Rate 67 72 Respiratory 18 18 Rate Blood Pressure 165/80 153/81 O2 Sat by Pulse 100 97 Oximetry - Reevaluation(s) Reevaluation #1: 12/01/24 16:17 Medical records reviewed Reevaluation #2: 12/01/24 16:17 Is not requiring anything for pain Reevaluation #3: 12/01/24 16:17 Patient informed of results and questions answered Reevaluation #4: Was pt. sent in by a medical professional or institution (, PA, CREDENTIALING SPECIALIST, urgent care, hospital, or care home...) When possible be specific @ -no Did you speak to anyone other than the patient for history (EMS, parent, family, police, friend...)? What history was obtained from this source @ -no Did you review nursing and triage notes (agree or disagree)? Why? @ -agree Are old charts reviewed (outside hosp., previous admission, EMS record, old EKG, old radiological studies, urgent care reports/EKG's, care home records)? Report findings @ -yes Differential Diagnosis (chest pain, altered mental status, abdominal pain women, abdominal pain men, vaginal bleeding, weakness, fever, dyspnea, syncope, headache, dizziness, GI bleed, back pain, seizure, CVA, palpatations, mental health, musculoskeletal)? @ -prior EKG interpreted by me (3pts min.). @ -yes X-rays interpreted by me (1pt min.). @ -yes negative for acute disease CT interpreted by me (1pt min.). @ -no U/S interpreted by me (1pt. min.). @ -no What testing was considered but not performed or refused? (CT, X-rays, U/S, labs)? Why? @ -none What meds were considered but not given or refused? Why? @ -none Did you discuss the management of the patient with other professionals (professionals i.e. , PA, CREDENTIALING SPECIALIST, lab, RT, psych nurse, executive secretary social welfare, mash preparatory operator, teacher, fundraising officer, case management coordinator)? Give summary @ -no Was smoking cessation discussed for >3mins.? @ -no Was critical care preformed (if so, how long)? @ -no Were there social determinants of health that impacted care today? How? (Homelessness, low income, unemployed, alcoholism, drug addiction, transportation, low edu. Level, literacy, decrease access to med. care, residential, rehab)? @ -none Was there de-escalation of care discussed even if they declined (Discuss DNR or withdrawal of care, Hospice)? DNR status @ -no What co-morbidities impacted this encounter? (DM, HTN, Smoking, COPD, CAD, Cancer, CVA, ARF, Chemo, Hep., AIDS, mental health diagnosis, sleep apnea, morbid obesity)? @ -none Was patient admitted / discharged? Hospital course, mention meds given and route, prescriptions, significant lab abnormalities, going to OR and other pertinent info. @ - Undiagnosed new problem with uncertain prognosis? @ -no Drug Therapy requiring intensive monitoring for toxicity (Heparin, Nitro, Insulin, Cardizem)? @ -no Were any procedures done? @ -no Diagnosis/symptom? @ - Acute, or Chronic, or Acute on Chronic? @ -Acute Uncomplicated (without systemic symptoms) or Complicated (systemic symptoms)? @ -Complicated Side effects of treatment? @ -no Exacerbation, Progression, or Severe Exacerbation? @ -exacerbation Poses a threat to life or bodily function? How? (Chest pain, USA, NE, pneumonia, PE, COPD, DKA, ARF, appy, cholecystitis, CVA, Diverticulitis, Homicidal, Suicidal, threat to staff... and all critical care pts) @ -yes - Consultations Consultation #1: Spoke with orthopedic on-call patient's orthopedic doctor, recommend transfer Consultation #2: Spoke with [facility] who accepts patient as transfer Medical Decision Making - Medical Decision Making 79 female to ER for evaluation patient presents today for evaluation of right leg pain with right femur fracture patient will be transferred to [facility] for definitive treatment - Lab Data Result diagrams: 12/01/24 16:53 12/01/24 16:53 Lab Results 12/01/24 12/01/24 12/01/24 Range/Units 16:53 16:53 16:53 WBC 11.5 H (3.8-10.6) k/uL RBC 4.36 (3.80-5.40) m/uL Hgb 12.7 (11.4-16.0) gm/dL Hct 38.5 (34.0-46.0) % MCV 88.3 (80.0-100.0) fL MCH 29.0 (25.0-35.0) pg MCHC 32.9 (31.0-37.0) g/dL RDW 13.7 (11.5-15.5) % Plt Count 402 (150-450) k/uL MPV 7.3 Neutrophils % 84 % Lymphocytes % 10 % Monocytes % 4 % Eosinophils % 1 % Basophils % 0 % Neutrophils # 9.7 H (1.3-7.7) k/uL Lymphocytes # 1.2 (1.0-4.8) k/uL Monocytes # 0.5 (0-1.0) k/uL Eosinophils # 0.1 (0-0.7) k/uL Basophils # 0.0 (0-0.2) k/uL PT 10.9 (10.0-12.5) sec INR 1.0 (<1.2) APTT 23.0 (22.0-30.0) sec Sodium 132 L (137-145) mmol/L Potassium 3.6 (3.5-5.1) mmol/L Chloride 97 L (98-107) mmol/L Carbon Dioxide 23 (22-30) mmol/L Anion Gap 12 mmol/L BUN 27 H (7-17) mg/dL Creatinine 0.81 (0.52-1.04) mg/dL Est GFR (CKD-EPI)AfAm 79 (>60 ml/min/1.73 sqM) Est GFR (CKD-EPI)NonAf 69 (>60 ml/min/1.73 sqM) Glucose 99 (74-99) mg/dL Calcium 10.2 (8.4-10.2) mg/dL Phosphorus 3.8 (2.5-4.5) mg/dL Magnesium 1.7 (1.6-2.3) mg/dL Total Bilirubin 0.4 (0.2-1.3) mg/dL AST 27 (14-36) U/L ALT 11 (4-34) U/L Alkaline Phosphatase 145 H (38-126) U/L Troponin I (0.000-0.034) ng/mL Total Protein 7.1 (6.3-8.2) g/dL Albumin 4.3 (3.5-5.0) g/dL 12/01/24 Range/Units 16:53 WBC (3.8-10.6) k/uL RBC (3.80-5.40) m/uL Hgb (11.4-16.0) gm/dL Hct (34.0-46.0) % MCV (80.0-100.0) fL MCH (25.0-35.0) pg MCHC (31.0-37.0) g/dL RDW (11.5-15.5) % Plt Count (150-450) k/uL MPV Neutrophils % % Lymphocytes % % Monocytes % % Eosinophils % % Basophils % % Neutrophils # (1.3-7.7) k/uL Lymphocytes # (1.0-4.8) k/uL Monocytes # (0-1.0) k/uL Eosinophils # (0-0.7) k/uL Basophils # (0-0.2) k/uL PT (10.0-12.5) sec INR (<1.2) APTT (22.0-30.0) sec Sodium (137-145) mmol/L Potassium (3.5-5.1) mmol/L Chloride (98-107) mmol/L Carbon Dioxide (22-30) mmol/L Anion Gap mmol/L BUN (7-17) mg/dL Creatinine (0.52-1.04) mg/dL Est GFR (CKD-EPI)AfAm (>60 ml/min/1.73 sqM) Est GFR (CKD-EPI)NonAf (>60 ml/min/1.73 sqM) Glucose (74-99) mg/dL Calcium (8.4-10.2) mg/dL Phosphorus (2.5-4.5) mg/dL Magnesium (1.6-2.3) mg/dL Total Bilirubin (0.2-1.3) mg/dL AST (14-36) U/L ALT (4-34) U/L Alkaline Phosphatase (38-126) U/L Troponin I <0.012 (0.000-0.034) ng/mL Total Protein (6.3-8.2) g/dL Albumin (3.5-5.0) g/dL - EKG Data -: EKG Interpreted by Me (EKG sinus 70 NM 168 QRS 131 QTc 448) - Radiology Data Radiology results: report reviewed (XR Right hip x-ray femur positive for postsurgical femur transfer), image reviewed Disposition Clinical Impression: Fall, Right femoral fracture Disposition: OTHER INSTITUTION NOT DEFINED Condition: Serious Is patient prescribed a controlled substance at d/c from ED?: No Referrals: Renetta Torres MD [Primary Care Provider] - 1-2 days Time of Disposition: 16:00 - Out of Hospital Transfer - Req. Specs Out of Hospital Transfer - Requested Specifics: Other Emergency [facility] ([facility])
--- NOTE | 2024-12-01 14:47 | XR ---
EXAMINATION TYPE: XR Hip RT and AP Pelvis, XR femur RT DATE OF EXAM: 12/01/2024 2:39 PM INDICATION: Patient age:Female; 79 years old; Reason for study: pain; PHH. pain COMPARISON: Right femur radiographs 09/11/2024, 09/10/2024 TECHNIQUE: The right hip was examined in the frontal and lateral projections and a AP pelvis. The ri ght femur was evaluated and AP and lateral projections. FINDINGS: Postsurgical changes from bilateral total hip arthroplasty. Additional fixation plate with cerclage wires and screws involving the right femur. There is an acute oblique mildly displaced fract ure with shortening involving the right femoral diaphysis. There is clear fracture through the fixati on plate and cerclage wire. Multilevel degenerative disc disease. Postsurgical changes from right tot al knee arthroplasty. Pelvic phleboliths. Vascular sclerosis. IMPRESSION: Acute mildly displaced fracture of the mid right femur diaphysis with clear fracture through the femu r fixation plate and cerclage wire. [facility], , 12/01/2024 2:45 PM
[2024-12-01 17:05] LABS: Basophils % (A) 0 %; Eosinophils # (A) 0.1 k/uL (0-0.7); Eosinophils % (A) 1 %; HCT 38.5 % (34.0-46.0); HGB 12.7 gm/dL (11.4-16.0); Lymphocytes # (A) 1.2 k/uL (1.0-4.8); Lymphocytes % (A) 10 %; MCHC 32.9 g/dL (31.0-37.0); MCV 88.3 fL (80.0-100.0); Mean Platelet Volume 7.3; Monocytes # (A) 0.5 k/uL (0-1.0); Monocytes % (A) 4 %; Neutrophils # (A) 9.7 k/uL (1.3-7.7); Neutrophils % (A) 84 %; Platelet Count 402 k/uL (150-450); RBC 4.36 m/uL (3.80-5.40); RDW 13.7 % (11.5-15.5); WBC 11.5 k/uL (3.8-10.6)
[2024-12-01] MEDS: SODIUM CHLORIDE 0.9% 1,000 ML IV STA (17:09)
[2024-12-01] MEDS: MORPHINE SULFATE 4 MG/ML SYRINGE IV STA (17:09)
[2024-12-01] MEDS: ONDANSETRON 4 MG/2 ML VIAL IVP STA (17:09)
[2024-12-01 17:16] LABS: ALT 11 U/L (4-34); AST 27 U/L (14-36); African American GFR (CKD) 79 (>60 ml/min/1.73 sqM); Albumin 4.3 g/dL (3.5-5.0); Alkaline Phosphatase 145 U/L (38-126); Anion Gap 12 mmol/L; Blood Urea Nitrogen 27 mg/dL (7-17); Calcium 10.2 mg/dL (8.4-10.2); Carbon Dioxide 23 mmol/L (22-30); Chloride 97 mmol/L (98-107); Glucose 99 mg/dL (74-99); Magnesium 1.7 mg/dL (1.6-2.3); Non-African American GFR(CKD) 69 (>60 ml/min/1.73 sqM); Phosphorus 3.8 mg/dL (2.5-4.5); Potassium 3.6 mmol/L (3.5-5.1); Prothrombin Time 10.9 sec (10.0-12.5); Sodium 132 mmol/L (137-145); Total Bilirubin 0.4 mg/dL (0.2-1.3); Total Protein 7.1 g/dL (6.3-8.2)
[2024-12-01 18:37] VITALS: BP 163/84; PULSE 79; TEMP 97.6
== END 2024-12-01 18:45 | disposition other institution (70) ==
LOC: EC 13:32
DX: S72.91XA Unspecified fracture of right femur, initial encounter for closed fracture (principal); Z87.891 Personal history of nicotine dependence; Z88.5 Allergy status to narcotic agent; W19.XXXA Unspecified fall, initial encounter
CPT/HCPCS: 36415; 93005; 80053; 83735; 84100; 84484; 85025; 85610; 85730; 73502; 73552; 99285; 96374; 96361; J2405